=== PATIENT | male | born 1955 | race Caucasian/White ===

== ENCOUNTER → 2018-04-09 | Outpatient (CLI) | payer OTHER | END | disposition home or self-care (01) | LOC: LABPAT 12:21 | PROVIDERS: ATTEND Orthopaedic Surgery | DX: Z01.812 Encounter for preprocedural laboratory examination (principal) | CPT/HCPCS: 87070 ==

== ENCOUNTER 2018-04-26 05:56 | Day surgery (SDC) | payer OTHER ==
[2018-04-22 10:59] VITALS: BMI 38.7
--- NOTE | 2018-04-25 16:29 | HP ---
HISTORY AND PHYSICAL Surgery is scheduled for 04/26/2018. Gabriela Herrera is a 63-year-old patient seen with symptomatic right knee osteoarthritis. We discussed treatment options. The patient elected to proceed with right total knee arthroplasty. Consent was obtained. Preoperative clearance was provided Dr. Otilio Lujan. PAST MEDICAL HISTORY: Noncontributory. PAST SURGICAL HISTORY: Noncontributory. DAILY MEDICATIONS: [place]. ALLERGIES: None reported. SOCIAL HISTORY: Patient denies tobacco use. PHYSICAL EXAMINATION: Evaluation of the right knee: Range of motion is -7/110 degrees. Tenderness medial joint line. Positive medial Chance's. Ligaments stable. Crepitus along the medial and patellofemoral compartments to range of motion. Pain with patellofemoral compression. Hip rotation without pain. Distal neurovascular exam is intact. Radiographs of the right knee revealed severe medial and moderate patellofemoral compartment osteoarthritis. IMPRESSION: Right knee osteoarthritis. PLAN: Right total knee arthroplasty. MMODL / IJN: [id number] /
[~2018-04-26 05:56] MED LIST: ACETAMINOPHEN TAB 500 MG TAB PO ONE; MELOXICAM 7.5 MG TAB PO ONE; TRANEXAMIC ACID 1,000 MG in SODIUM CHLORIDE 0.9% 50 ML IVPB ONE; ceFAZolin IN SWFI 2 GM/20 ML SYRINGE IVP ONE
[2018-04-26] MEDS ORDERED: SCOPOLAMINE 1.5MG/72HR PATCH TRANSDERM ONE (06:07)
[2018-04-26] MEDS ORDERED: LACTATED RINGERS 1,000 ML IV SCH ×2 (06:07→09:45)
[2018-04-26] MEDS ORDERED: DEXAMETHASONE SOD PHOSPHATE 10 MG/ML 1 ML VIAL IV ONE (06:07)
[2018-04-26] MEDS ORDERED: ONDANSETRON 4 MG/2 ML VIAL IVP ONE (06:07)
[2018-04-26] MEDS ORDERED: MIDAZOLAM (PF) 2 MG/2 ML VIAL IV PRN (06:07)
[2018-04-26] MEDS ORDERED: LIDOCAINE 1% 20 ML VIAL (10MG/ML) FOR IV START INTRADERMA ONE (06:35)
[2018-04-26] MEDS ORDERED: fentaNYL (PF) 50 MCG/ML 2 ML AMP IVP ONE (07:00)
[2018-04-26] MEDS ORDERED: KETAMINE 10 MG/ML 20 ML VIAL ONE (07:29)
[2018-04-26] MEDS ORDERED: SODIUM CHLORIDE 0.9% 100 ML BAG ONE (07:29)
[2018-04-26] MEDS ORDERED: PHENYLEPHRINE-0.9% NACL SYG 1 MG/10 ML SYRINGE ONE (07:29)
[2018-04-26] MEDS ORDERED: TRANEXAMIC ACID 1,000 MG/10 ML VIAL ONE (07:29)
[2018-04-26] MEDS ORDERED: DEXAMETHASONE SOD PHOS (MDV) 100 MG/10 ML VIAL ONE (07:29)
[2018-04-26] MEDS ORDERED: LIDOCAINE 1% INJ 10MG/ML (20 ML MDV) ONE (07:29)
[2018-04-26] MEDS ORDERED: MIDAZOLAM 2 MG/2 ML VIAL ONE (07:29)
[2018-04-26] MEDS ORDERED: fentaNYL (PF) 50 MCG/ML 2 ML AMP ONE (07:29)
[2018-04-26] MEDS ORDERED: PROPOFOL 10 MG/ML 20 ML VIAL IV ONE (07:29)
[2018-04-26] MEDS ORDERED: ROPIVACAINE 246.25 MG, EPINEPHrine 0.5 MG, KETOROLAC 30 MG, cloNIDine HCL/PF 80 MCG, WA... MISCELLANE ONE ×5 (07:44)
[2018-04-26] MEDS ORDERED: ceFAZolin 3,000 MG in SODIUM CHLORIDE 0.9% IRRIGATIO 3,000 ML IRRIGATION ONE (08:01)
--- NOTE | 2018-04-26 08:28 | P.ONQ ---
Anesthesiology Proc Note - PNB - Peripheral Nerve Block Performed Right Adductor Canal Infusion Time Out Performed: Yes Procedure Start Time: 06:50 Procedure Stop Time: 06:58 Indication: Acute Post-Operative Pain, Analgesia, Requested by physician Sedation Type: Sedate with meaningful contact maintained Preparation: Sterile Dressing Position: Supine Catheter: Indwelling Needle Types: On-Q Needle Size: 100mm (4") Needle Gauge: 20 Technique: Ultrasound Injectate: 0.5% Ropivacaine (see comment for volume) Blood Aspirated: No Pain Paresthesia on Injection Noted: No Resistance on Injection: Normal Events: Uneventful and Well Tolerated (25ml total solution)
[2018-04-26] MEDS ORDERED: LACTATED RINGERS 1,000 ML IV ONE ×2 (08:41→13:09)
--- NOTE | 2018-04-26 09:35 | P.OP ---
Date of Procedure: 04/26/18 Preoperative Diagnosis: Right knee osteoarthritis Postoperative Diagnosis: Right knee osteoarthritis Procedure(s) Performed: Right total knee arthroplasty Implants: 1. Microport evolution size 6 right cemented femur 2. Microport evolution size 6+ right cemented tibial baseplate 3. Microport evolution size 6 right 10 mm MP polyethylene tibial insert 4. Microport advance 38 mm all polyethylene cemented patella Anesthesia: GETA, regional (Adductor canal catheter), local Surgeon: Karthik Booker Certified Professional Ergonomist #1: Enoch Levi Estimated Blood Loss (ml): 50 Pathology: other (Bone) Condition: stable Disposition: PACU Indications for Procedure: 63-year-old patient seen with symptomatic right knee osteoarthritis. After treatment options were discussed, he elected to proceed with total knee arthroplasty. Operative Findings: See description of procedure Description of Procedure: Patient was taken to the operative suite after having an adductor canal catheter placed by the department of anesthesia. Patient underwent a general anesthetic by the department of anesthesia. Patient was given preoperative IV intake antibiotics and TXA. A well-padded tourniquet was placed about the right lower extremity. The lower extremity was then prepped and draped in the normal sterile orthopedic fashion. The extremity was elevated, a tourniquet was insufflated to 300. A standard anterior incision was made sharply through skin. Dissection was taken down through the subcutaneous soft tissues down to the extensor mechanism. A medial arthrotomy was performed, patella was everted and knee was flexed. There was advanced osteoarthritis noted. I introduced my distal intramedullary femoral drill. I then introduced the distal femoral cutting jig. Jeff ULRICH secured the cutting jig with 2 pins. I held retractors in position while Jeff ULRICH performed the distal femoral resection through the guide area we now removed her distal femoral cutting guide. We now placed our 4-in-1 femoral cutting block and positioned and it was secured with 2 pins by Jeff ULRICH while I held the block in position. The distal femoral finishing was now completed. A proximal tibial cutting guide was positioned. I held the guide in the appropriate position with both hands well Jeff ULRICH inserted stabilizing pins into the guide. Proximal tibial cut was made. We now placed a trial femoral component into position, along with an appropriate size tibial tray and insert. We now took the knee through range of motion and had full extension good flexion and good overall soft tissue balance noted. The patella was everted and stabilized with 2 towel clips held by Jeff ULRICH while I performed a flush with patellar quad tendon utilizing a fresh sawblade. We templated the patella, appropriate drill holes were made. An appropriate trial patella was positioned, knee was taken through full range of motion with the patella tracking very nicely. The trial patella was removed. Drill holes were made through the femoral component. All trial components were removed after marking off the appropriate rotation of the tibia. Retractors were now positioned along the proximal tibia. An appropriate keel punch was made with the appropriate size tibial guide by myself on Jeff ULRICH assisted by holding retractors. At this point appropriate size implants were chosen and opened. The joint was irrigated copiously with pulse lavage mechanical irrigation. The posterior capsule was infiltrated with local analgesic. The wound was irrigated with pulse lavage mechanical irrigation. We mixed antibiotic methylmethacrylate. We placed the knee into flexion. We placed multiple retractors assisted by Jeff ULRICH to expose the proximal tibia. Once the methyl methacrylate was ready, the tibial component was cemented into place removing any excess methylmethacrylate form by both myself and Jeff ULRICH. The femoral component was cemented into place removing the removing any excess methylmethacrylate performed by both myself and Jeff ULRICH. We then inserted the appropriate size polyethylene tibial insert. We made sure that it was locked into position. We took the knee into full extension, and then back in a flexion making sure we had removed any excess methylmethacrylate. The patellar component was then cemented down and secured with clamp. Excess methylmethacrylate removed. We kept the knee in full extension, patellar clamp in position until methylmethacrylate had hardened. Once it had hardened the patellar clamp was removed. The knee was taken through full range of motion. The patella tracked nicely. There was good soft tissue balancing. The tourniquet was now released. Additional hemostasis was achieved via electrocautery. A second gram of TXA was given. The wound again was irrigated with pulse lavage mechanical irrigation. The superficial soft tissues were infiltrated local analgesic. The extensor mechanism was repaired with Vicryl. We checked the repair with range of motion and it was stable. The subcutaneous soft tissues were repaired with Vicryl in layers. The skin was approximated with pernio/Dermabond. Sterile dressings were applied followed by loose web roll and Anibal bandage. The patient was transferred to a bed, and taken to recovery in stable and satisfactory condition. Jeff ULRICH assisted with this complex procedure.
[2018-04-26] MEDS ORDERED: HYDROmorphone 2 MG/ML 1 ML SYRINGE IVP PRN (09:36)
[2018-04-26] MEDS ORDERED: NALOXONE 0.4 MG/ML 1 ML VIAL IV PRN (09:36)
[2018-04-26] MEDS ORDERED: HYDROcodone/APAP 5-325MG 1 EACH TAB PO PRN ×2 (09:36)
[2018-04-26] MEDS ORDERED: HYDROmorphone 0.5 MG/0.5 ML SYRINGE IVP PRN ×2 (09:36)
[2018-04-26] MEDS ORDERED: ONDANSETRON 4 MG/2 ML VIAL IVP PRN (09:36)
[2018-04-26 09:47] VITALS: TEMP 96.8
[2018-04-26] MEDS: HYDROmorphone 0.5 MG/0.5 ML SYRINGE IVP PRN ×4 (09:47→10:13)
[2018-04-26] MEDS: MEPERIDINE 50 MG/ML SYRINGE IVP ONE ×2 (10:22→11:00)
[2018-04-26] MEDS ORDERED: ROPIVACAINE 1,100 MG, SODIUM CHLORIDE 0.9% 500 ML 330 ML MISCELLANE PRN ×2 (10:23)
[2018-04-26 11:29] VITALS: RESP 16
[2018-04-26] MEDS ORDERED: HYDROcodone/APAP 7.5-325MG 1 EACH TAB PO ONE (14:19)
[2018-04-26 14:31] VITALS: BP 123/80; PULSE 68
--- NOTE | 2018-04-27 07:08 | P.PN ---
Progress Note - Text Progress Note Date: 04/27/18 The patient is status post[ 1] adductor canal catheter placement. The catheter was placed for postoperative pain control, status post total [left knee] arthroplasty. Ropivacaine 0.2% is infusing at[5 ] mLs per hour. The patient has no complaints of[ left] lower extremity numbness or weakness. Patient's VAS score is[ 5 ]-10. Assessment: Patient's adductor canal catheter is in place and working appropriately. Plan: continue infusion and adjust it as needed.
== END 2018-04-26 15:47 | disposition home health service (06) ==
LOC: OR 05:56
PROVIDERS: ATTEND Orthopaedic Surgery
DX: M17.11 Unilateral primary osteoarthritis, right knee (principal); M10.9 Gout, unspecified; Z79.891 Long term (current) use of opiate analgesic
CPT/HCPCS: 97161; 88300; 27447; C1776; C1713; C1772; J0171; J1100; J2175; J0690 ×3; J2405; J3010; J1885; J2795; J0735; J1170; J2250

== ENCOUNTER 2020-08-22 10:27 | Observation (INO) | payer MEDICARE ==
--- NOTE | 2020-08-22 12:01 | XR ---
EXAMINATION TYPE: XR chest 2V DATE OF EXAM: 08/22/2020 COMPARISON: Chest x-ray 02/19/2014 HISTORY: Chest pain TECHNIQUE: Frontal and lateral views of the chest are obtained. FINDINGS: There is been interval development of a wedge-shaped density in the subpleural location in the left chest. No evident pneumothorax or pleural effusion. Heart and mediastinal silhouette is sta ble. Left sixth, displaced seventh and possibly eighth, ninth and 10th ribs show fractures on the in terval finding. IMPRESSION: Left-sided rib fractures, there may be associated chest wall hematoma, lung contusion, c orrelate for appropriate history
[2020-08-22] MEDS ORDERED: ASPIRIN 81 MG PO STA (12:05)
[2020-08-22 12:21] LABS: Basophils # (A) 0.1 k/uL (0-0.2); Basophils % (A) 1 %; Eosinophils # (A) 0.3 k/uL (0-0.7); Eosinophils % (A) 3 %; HCT 46.8 % (39.0-53.0); HGB 15.9 gm/dL (13.0-17.5); Lymphocytes # (A) 1.7 k/uL (1.0-4.8); Lymphocytes % (A) 23 %; MCH 30.5 pg (25.0-35.0); MCV 89.8 fL (80.0-100.0); Mean Platelet Volume 8.1; Monocytes # (A) 0.4 k/uL (0-1.0); Monocytes % (A) 6 %; Neutrophils # (A) 4.8 k/uL (1.3-7.7); Neutrophils % (A) 65 %; Platelet Count 259 k/uL (150-450); RBC 5.21 m/uL (4.30-5.90); RDW 13.6 % (11.5-15.5); WBC 7.3 k/uL (3.8-10.6)
[2020-08-22 12:29] LABS: Albumin 4.9 g/dL (3.5-5.0); Calcium 10.2 mg/dL (8.4-10.2); Potassium 5.1 mmol/L (3.5-5.1); Total Bilirubin 0.6 mg/dL (0.2-1.3); Total Protein 7.5 g/dL (6.3-8.2)
--- NOTE | 2020-08-22 12:35 | ED ---
Chest Pain HPI - General Chief Complaint: Chest Pain Stated Complaint: chest pain/SOB Time Seen by Provider: 08/22/20 11:55 Source: patient, family, RN notes reviewed Mode of arrival: wheelchair Limitations: no limitations - History of Present Illness Initial Comments: 65-year-old male presents emergency Department with chief complaint of chest discomfort. Patient states he's been having some on-and-off symptoms states is persistent today. Patient states that feels like someone is punching him in the chest. He is on the left side. Patient does feel short of breath occasionally patient denies any prior cardiac disease is not taking her medications. He does go see his physician a regular basis. Patient denies any history of lung disease. - Related Data Home Medications Medication Instructions Recorded Confirmed Aspirin [Adult Low Dose Aspirin EC] 81 mg PO DAILY 08/22/20 08/22/20 Ferrous Sulfate [Feosol] 325 mg PO DAILY 08/22/20 08/22/20 Allergies Allergy/AdvReac Type Severity Reaction Status Date / Time No Known Allergies Allergy Verified 08/22/20 12:51 Review of Systems ROS Statement: Those systems with pertinent positive or pertinent negative responses have been documented in the HPI. ROS Other: All systems not noted in ROS Statement are negative. EKG Findings - EKG Comments: EKG Findings:: EKG performed at 10:46 sinus rhythm rate of 84 SD 154 QRS 88 QT/QTC 388/458 - EKG Results: EKG: interpreted by CONRADO Past Medical History Past Medical History: Hyperlipidemia Additional Past Medical History / Comment(s): Gout History of Any Multi-Drug Resistant Organisms: None Reported Past Surgical History: No Surgical Hx Reported Past Psychological History: No Psychological Hx Reported Smoking Status: Never smoker Past Alcohol Use History: None Reported Past Drug Use History: None Reported General Exam Limitations: no limitations General appearance: alert, in no apparent distress Head exam: Present: atraumatic, normocephalic, normal inspection Eye exam: Present: normal appearance, PERRL, EOMI. Absent: scleral icterus, conjunctival injection, periorbital swelling ENT exam: Present: normal exam, normal oropharynx, mucous membranes moist Neck exam: Present: normal inspection, full ROM. Absent: tenderness, meningismus, lymphadenopathy Respiratory exam: Present: normal lung sounds bilaterally. Absent: respiratory distress, wheezes, rales, rhonchi, stridor Cardiovascular Exam: Present: regular rate, normal rhythm, normal heart sounds. Absent: systolic murmur, diastolic murmur, rubs, gallop, clicks GI/Abdominal exam: Present: soft, normal bowel sounds. Absent: distended, tenderness, guarding, rebound, rigid Extremities exam: Present: normal capillary refill. Absent: pedal edema, calf tenderness Course Vital Signs 08/22/20 08/22/20 08/22/20 10:36 12:23 12:29 Temperature 97.7 F Pulse Rate 82 74 Respiratory 18 20 Rate Blood Pressure 122/78 122/76 159/87 O2 Sat by Pulse 96 97 Oximetry - Reevaluation(s) Reevaluation #1: 08/22/20 12:36 Chest x-ray shows evidence of rib fractures. Patient states he's had no recent falls. Patient states he fell 5 years ago from a height onto some concrete. Patient was kept over the night in the hospital for rib fractures but states he is only told he had 2 rib fractures. Chest Pain MDM - MDM 65-year-old presented for chest pain. Initial workup does not reveal any acute findings x-ray shows evidence of old rib fractures he has no new injury. Patient's d-dimer is negative patient be admitted for cardiology evaluation. Disposition Clinical Impression: Chest pain Disposition: ADMITTED IP TO THIS HOSP Condition: Fair Referrals: Otilio Lujan DO [Primary Care Provider] - 1-2 days
[2020-08-22 12:39] LABS: INR 0.9 (<1.2)
[2020-08-22 12:40] LABS: D-Dimer 0.45 mg/L FEU (<0.60); Partial Thromboplastin Time 22.4 sec (22.0-30.0)
[2020-08-22] MEDS ORDERED: HEPARIN SODIUM 1,000 UN/ML (10ML VL) IV ONE (14:24)
[2020-08-22] MEDS ORDERED: NITROGLYCERIN SL TABS 0.4 MG TAB SUBLINGUAL PRN (14:24)
[2020-08-22] MEDS ORDERED: HEPARIN SOD,PORK IN 0.45% NACL 25,000 UNIT in 0.45% NACL 1 250ML.BAG IV SCH (14:30)
[2020-08-22 21:54] LABS: Partial Thromboplastin Time 25.9 sec (22.0-30.0); Prothrombin Time 10.5 sec (9.0-12.0)
[2020-08-22] MEDS: HEPARIN SODIUM 1,000 UN/ML (10ML VL) IV PRN (22:08)
[2020-08-23 03:34] VITALS: TEMP 97.6
[2020-08-23] MEDS: HEPARIN SODIUM 1,000 UN/ML (10ML VL) IV PRN (06:10)
[2020-08-23 07:49] VITALS: BP 143/83; PULSE 61; RESP 17
[2020-08-23] MEDS ORDERED: ASPIRIN 325 MG TAB PO SCH (09:00)
[2020-08-23] MEDS ORDERED: REGADENOSON 0.4 MG/5 ML SYRINGE IV PRN (09:17)
[2020-08-23] MEDS ORDERED: CAFFEINE CITRATE 60 MG/3 ML VIAL IV PRN (09:17)
[2020-08-23] MEDS ORDERED: AMINOPHYLLINE 500 MG/20 ML VIAL IV PRN (09:17)
--- NOTE | 2020-08-23 10:40 | P.CRDCN ---
History of Present Illness History of present illness: HISTORY OF PRESENTING ILLNESS This is a pleasant 65-year-old male past medical history significant for dyslipidemia, left sided rib fractures 6 years ago. 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 We have been asked to see in consultation for chest pain. Patient states that he's been having intermittent left-sided chest pain. Yesterday his chest pain was more persistent. He associated shortness of breath, nausea and diaphoresis. His chest pain increases) he decided to present to the emergency department. He denies symptoms of palpitations, weakness, lightheadedness, symptoms of orthopnea or PND. He denies a history of hypertension diabetes, cardiac disease, stroke. He does not take any cardiac medication. He is a nonsmoker. Occasional alcohol drinker. No prior cardiac workup in the past. Current home cardiac medications include aspirin 81 mg daily. EKG reveals sinus rhythm, heart rate 84, no significant STT wave abnormalities. No prior EKG to compare. Laboratory data reviewed, troponin negative 3, d-dimer negative, COVID-19 negative, sodium 141, potassium 5.1, serum creatinine 1.16, magnesium 2.0. Telemetry reviewed, patient in sinus bradycardia and sinus rhythm, HR 50-60s, HR low 48. Chest x-ray revealed left sided rib fractures, wedge-shaped density in the subpleural location of the left chest. On admission, BP 122/78 HR 82, afebrile, 96% on room air REVIEW OF SYSTEMS At the time of my exam: CONSTITUTIONAL: Denies fever or chills. CARDIOVASCULAR: +chest pain,+ shortness of breath, +diaphoresis Denies orthopnea, PND or palpitations. RESPIRATORY: Denies cough. GASTROINTESTINAL: +nausea Denies abdominal pain, diarrhea, constipation, vomiting. MUSCULOSKELETAL: Denies myalgias. NEUROLOGIC: Denies numbness, tingling, headacbe or weakness. ENDOCRINE: Denies fatigue, weight change, polydipsia or polyurina. GENITOURINARY: Denies burning, hematuria or urgency with micturation. HEMATOLOGIC: Denies history of anemia or bleeding. PHYSICAL EXAMINATION Blood pressure 143/83 heart rate 61 afebrile and maintaining oxygen saturation 94-97% on room air CONSTITUTIONAL: No apparent distress. HEENT: Head is normocephalic. Pupils are equal, round. Sclerae anicteric. Mucous membranes of the mouth are moist. No JVD. No carotid bruit. CHEST EXAMINATION: Lungs are clear to auscultation. No chest wall tenderness is noted on palpation or with deep breathing. HEART EXAMINATION: Regular rate and rhythm. S1, S2 heard. No murmurs, gallops or rub. ABDOMEN: Soft, nontender. Positive bowel sounds. EXTREMITIES: 2+ peripheral pulses, no lower extremity edema and no calf tenderness. SKIN: intact NEUROLOGIC EXAMINATION: Patient is awake, alert and oriented x3. ASSESSMENT Chest pain, atypical. Acute coronary syndrome has been ruled out. Cardiac enzymes negative. EKG no evidence of ischemia Dyslipidemia PLAN An acute coronary event has been ruled out with no EKG evidence of ischemia and negative cardiac enzymes. Obtain 2D echocardiogram and doppler study to assess cardiac structure and function. Perform Lexiscan stress test to assess for stress induced cardiac ischemia. If abnormal will consider coronary angiography. If stress test negative and echocardiogram with no acute findings, patient can be discharged from cardiology perspective. Thank you kindly for this consultation. Nurse Practitioner note has been reviewed, I agree with a documented findings and plan of care. Patient was seen and examined. Past Medical History Past Medical History: Hyperlipidemia, Pneumonia Additional Past Medical History / Comment(s): Gout, patient stated he fell about 5 years ago onto concrete and broke some ribs on the left side. History of Any Multi-Drug Resistant Organisms: None Reported Past Surgical History: No Surgical Hx Reported Additional Past Surgical History / Comment(s): right knee replacement Past Psychological History: No Psychological Hx Reported Smoking Status: Never smoker Past Alcohol Use History: Occasional Past Drug Use History: None Reported - Past Family History Mother Family Medical History: No Reported History Father Family Medical History: No Reported History Medications and Allergies Home Medications Medication Instructions Recorded Confirmed Type Aspirin [Adult Low Dose Aspirin EC] 81 mg PO DAILY 08/22/20 08/22/20 History Ferrous Sulfate [Feosol] 325 mg PO DAILY 08/22/20 08/22/20 History Allergies Allergy/AdvReac Type Severity Reaction Status Date / Time No Known Allergies Allergy Verified 08/22/20 12:51 Physical Exam Vitals: Vital Signs Temp Pulse Pulse Resp BP BP BP 08/23/20 07:00 97.6 F 61 17 143/83 08/23/20 02:27 97.6 F 62 18 122/68 08/22/20 19:54 97.8 F 59 L 18 152/84 08/22/20 15:00 72 16 145/84 08/22/20 12:29 159/87 08/22/20 12:23 74 20 122/76 08/22/20 10:36 97.7 F 82 18 122/78 Pulse Ox 08/23/20 07:00 94 L 08/23/20 02:27 97 08/22/20 19:54 96 08/22/20 15:00 97 08/22/20 12:29 08/22/20 12:23 97 08/22/20 10:36 96 Intake and Output 08/22/20 08/23/20 08/23/20 22:59 06:59 14:59 Intake Total 66.46 104.786 Balance 66.46 104.786 Intake: Intake, IV Titration 66.46 104.786 Amount Heparin Sod,Pork in 0.45% 66.46 104.786 NaCl 25,000 unit In 0.45 % NaCl 1 250ml.bag @ 8.16 UNITS/KG/HR 9.994 mls/hr IV .Q24H [facility] Rx#: [id number] Other: Voiding Method Toilet # Voids 1 2 Weight 122.47 kg Results 08/22/20 12:11 08/22/20 12:11 Cardiac Enzymes 08/22/20 08/22/20 08/22/20 Range/Units 12:11 12:11 15:11 AST 44 (17-59) U/L Troponin I <0.012 <0.012 (0.000-0.034) ng/mL 08/22/20 Range/Units 17:57 AST (17-59) U/L Troponin I <0.012 (0.000-0.034) ng/mL Coagulation 08/22/20 08/22/20 08/23/20 Range/Units 12:11 21:15 04:44 PT 10.0 10.5 (9.0-12.0) sec APTT 22.4 25.9 27.4 (22.0-30.0) sec CBC 08/22/20 Range/Units 12:11 WBC 7.3 (3.8-10.6) k/uL RBC 5.21 (4.30-5.90) m/uL Hgb 15.9 (13.0-17.5) gm/dL Hct 46.8 (39.0-53.0) % Plt Count 259 (150-450) k/uL Comprehensive Metabolic Panel 08/22/20 Range/Units 12:11 Sodium 141 (137-145) mmol/L Potassium 5.1 (3.5-5.1) mmol/L Chloride 108 H (98-107) mmol/L Carbon Dioxide 22 (22-30) mmol/L BUN 23 H (9-20) mg/dL Creatinine 1.16 (0.66-1.25) mg/dL Glucose 96 (74-99) mg/dL Calcium 10.2 (8.4-10.2) mg/dL AST 44 (17-59) U/L ALT 53 H (4-49) U/L Alkaline Phosphatase 115 (38-126) U/L Total Protein 7.5 (6.3-8.2) g/dL Albumin 4.9 (3.5-5.0) g/dL Current Medications Generic Name Dose Route Start Last Admin Trade Name Freq PRN Reason Stop Dose Admin Aminophylline 100 mg 08/23/20 09:17 Aminophylline 500 Mg/20 Ml Vial IV 08/23/20 13:17 ONCE PRN Patient Response Aspirin 81 mg 08/24/20 09:00 Aspirin 81 Mg PO DAILY [facility] Caffeine Citrate 60 mg 08/23/20 09:17 Caffeine Citrate 60 Mg/3 Ml Vial IV 08/23/20 13:17 ONCE PRN Patient Response Heparin Sodium (Porcine) 0 unit 08/22/20 22:00 08/23/20 06:10 Heparin Sodium 1,000 Un/Ml (10ml Vl) IV 4,000 unit PER PROTOCOL PRN Administration Low PTT Protocol Nitroglycerin 0.4 mg 08/22/20 14:24 Nitroglycerin Sl Tabs 0.4 Mg Tab SUBLINGUAL Q5M PRN Chest Pain Regadenoson 0.4 mg 08/23/20 09:17 Regadenoson 0.4 Mg/5 Ml Syringe IV 08/23/20 13:17 ONCE PRN Per Protocol Intake and Output 08/22/20 08/23/20 08/23/20 22:59 06:59 14:59 Intake Total 66.46 104.786 Balance 66.46 104.786 Intake: Intake, IV Titration 66.46 104.786 Amount Heparin Sod,Pork in 0.45% 66.46 104.786 NaCl 25,000 unit In 0.45 % NaCl 1 250ml.bag @ 8.16 UNITS/KG/HR 9.994 mls/hr IV .Q24H [facility] Rx#: [id number] Other: Voiding Method Toilet # Voids 1 2 Weight 122.47 kg 08/22/20 12:11 08/22/20 12:11
[2020-08-23 11:57] LABS: Chol/HDL Ratio 7.14; LDL Cholesterol,Calculated 142.6 mg/dL (0.0-131.0); VLDL Calculation 29.4 mg/dL (5.00-40.00)
--- NOTE | 2020-08-23 12:33 | P.STRESS ---
- Stress Test Note Stress Test Results/Findings: Exam Performed: NM stress lexiscan cardiolite Exam Date: 08/23/20 Reason for Exam: Chest Pain Height: 5 ft 10 in Weight: 122.47 kg Protocol: Lexiscan Stage: na Duration of Exercise: na Resting Heart Rate: 57 Resting Blood Pressure: 144/83 Maximum Achieved Heart Rate: 79 Maximum Achieved Blood Pressure: 149/76 85% PMHR: 132 100% PMHR: 155 METS: na Technologist Comment: Stress Test Results/Findings: His is a 65-year-old gentleman was admitted to the hospital with chest pain. Stress data: Baseline EKG showed sinus rhythm with normal UT interval and QRS duration. Blood pressure at rest is 140/83, pulse rate of 57. A standard dose of Lexiscan was infused. EKGs taken during and after infusion did not reveal any changes. Ischemia. Final impression: #1. Negative Lexiscan stress test #2. Report on the nuclear portion of the chest to be provided by the radiologist.
--- NOTE | 2020-08-23 13:10 | NM ---
EXAMINATION TYPE: NM stress lexiscan cardiolite DATE OF EXAM: 08/23/2020 COMPARISON: NONE HISTORY: Chest pain TECHNIQUE: After the intravenous administration of 10.2 mCi Tc 99m Sestamibi - Cardiolite resting SP ECT images acquired 45 minutes post injection. The patient received 0.4mg Lexiscan, 24.7 mCi Tc 99m Sestamibi - Stress images obtained [address] injection FINDINGS: Review of stress and rest SPECT images demonstrates no distinct perfusion abnormality. Gated analysi s shows normal wall motion with an estimated left ventricular ejection fraction of 63 %. IMPRESSION: No scintigraphic evidence for reversible ischemia.
--- NOTE | 2020-08-23 14:21 | P.HPIM ---
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 EKG revealing sinus rhythm, troponins negative 3, d-dimer negative . Cholesterol 147, cholesterol 200, LDL 142.6 . Hematology, coagulation unremarkable . Sodium 141, potassium 5.1 BUN 23, creatinine 1.16, magnesium 2, ALT 53. Chest x-ray reporting left-sided rib fractures, no evident pneumothorax or pleural effusion, may be associated with chest wall lung contusion,wedge-shaped density in the subpleural location of the left chest, in a patient who reports a fall 5 years ago onto concrete reporting broken ribs . Denies recent trauma /falls . Vital signs stable maintaining O2 sats in the mid to high 90s on room air. Afebrile. Heparin drip initiated, evaluated by cardiology and scheduled for Lexiscan stress test. Review of Systems Constitutional: Denied any fatigue denied any fever. Cardio vascular: Nonradiating left chest pain as mentioned above Gastrointestinal positive nausea ,no vomiting Pulmonary: Positive shortness of breath during the event, currently not Neurologic : Dizziness during the event ,currently denied any new focal deficits. Denies lightheadedness or dizziness. ROS Statement: Those systems with pertinent positive or pertinent negative responses have been documented in the HPI. ROS Other: All systems not noted in ROS Statement are negative. Past Medical History Past Medical History: Hyperlipidemia, Pneumonia Additional Past Medical History / Comment(s): Gout, patient stated he fell about 5 years ago onto concrete and broke some ribs on the left side. History of Any Multi-Drug Resistant Organisms: None Reported Past Surgical History: No Surgical Hx Reported Additional Past Surgical History / Comment(s): right knee replacement Past Psychological History: No Psychological Hx Reported Smoking Status: Never smoker Past Alcohol Use History: Occasional Past Drug Use History: None Reported - Past Family History Mother Family Medical History: No Reported History Father Family Medical History: No Reported History Medications and Allergies Home Medications Medication Instructions Recorded Confirmed Type Aspirin [Adult Low Dose Aspirin EC] 81 mg PO DAILY 08/22/20 08/22/20 History Ferrous Sulfate [Iron (65 MG 325 mg PO DAILY 08/22/20 08/22/20 History Elemental)] Allergies Allergy/AdvReac Type Severity Reaction Status Date / Time No Known Allergies Allergy Verified 08/22/20 12:51 Physical Exam Vitals: Vital Signs Temp Pulse Pulse Resp BP BP BP 08/23/20 07:00 97.6 F 61 17 143/83 08/23/20 02:27 97.6 F 62 18 122/68 08/22/20 19:54 97.8 F 59 L 18 152/84 08/22/20 15:00 72 16 145/84 Pulse Ox 08/23/20 07:00 94 L 08/23/20 02:27 97 08/22/20 19:54 96 08/22/20 15:00 97 Intake and Output 08/22/20 08/23/20 08/23/20 22:59 06:59 14:59 Intake Total 66.46 104.786 Balance 66.46 104.786 Intake: Intake, IV Titration 66.46 104.786 Amount Heparin Sod,Pork in 0.45% 66.46 104.786 NaCl 25,000 unit In 0.45 % NaCl 1 250ml.bag @ 8.16 UNITS/KG/HR 9.994 mls/hr IV .Q24H COUNT INCLUDES THE [facility] Rx#: [id number] Other: Voiding Method Toilet # Voids 1 2 Weight 122.47 kg 122.47 kg PHYSICAL EXAM: VITAL SIGNS: [As above] GENERAL: Sitting up in bed, no acute distress HEENT: Conjunctivae normal. eyes normal. NECK: No JVD. No thyroid enlargement. No LNs CARDIOVASCULAR: S1, S2 regular.. No murmur RESPIRATION: Breath sounds diminished in the bases. No rhonchi or crackles. No bronchial breathing. ABDOMEN: Soft, nontender . No guarding. no masses palpable. No ascites, No hepatosplenomegaly.Bowel sounds heard. LEGS: No edema. no swelling PSYCHIATRY: Alert and oriented X3, mood and affect normal. NERVOUS SYSTEM: Cranial N 2-12 grossly normal. Moves all 4 limbs. No focal deficits. Strength and sensation grossly intact.. Skin: Warm and dry, no rash Lymphatic system. No LN neck axilla. Results CBC & Chem 7: 08/22/20 12:11 08/22/20 12:11 Labs: Abnormal Lab Results - Last 24 Hours (Table) 08/22/20 08/23/20 Range/Units 12:11 04:44 Chloride 108 H (98-107) mmol/L BUN 23 H (9-20) mg/dL ALT 53 H (4-49) U/L LDL Cholesterol, Calc 142.6 H (0.0-131.0) mg/dL HDL Cholesterol 28.0 L (40.0-60.0) mg/dL Thrombosis Risk Factor Assmnt - Choose All That Apply Any of the Below Risk Factors Present?: Yes Each Factor Represents 1 point: Obesity (BMI >25) Other Risk Factors: Yes Each Risk Factor Represents 2 Points: Age 61-74 years Other congenital or acquired thrombophilia - If yes, enter type in comment: No Thrombosis Risk Factor Assessment Total Risk Factor Score: 3 Thrombosis Risk Factor Assessment Level: Moderate Risk Assessment and Plan Assessment: Chest pain, with negative troponins, acute coronary syndrome ruled out as per ca rdiology. Echo, Lexiscan Stress test pending Hyperlipidemia Left rib fractures with wedge shaped density in the subpleural location, history of fall on concrete with broken ribs 5 years ago Plan: Continue on current medication regime ,monitoring and symptomatic treatment. Evaluated by cardiology. Patient is scheduled for echo, Lexiscan stress test. Patient will be discharged home today in a stable condition with Prognosis pending Lexiscan stress results, final DC recommendations and c learance from cardiology. The impression and plan of care has been dictated as directed. : I performed a history and examination of this patient, discussed the same with the dictator. I agree with the dictator's note ,documented as a scribe. Any additional findings or plans will be noted.
[2020-08-24] MEDS ORDERED: ASPIRIN 81 MG PO SCH (09:00)
== END 2020-08-23 15:20 ==
LOC: EC 10:27 → 6NMEDSUR 15:40
PROVIDERS: ADMIT Family Medicine; ATTEND Family Medicine
DX: R07.89 Other chest pain (principal); S22.42XA Multiple fractures of ribs, left side, initial encounter for closed fracture; E78.5 Hyperlipidemia, unspecified; M10.9 Gout, unspecified; R06.02 Shortness of breath; R42 Dizziness and giddiness; R61 Generalized hyperhidrosis; R11.0 Nausea; R00.1 Bradycardia, unspecified; E66.9 Obesity, unspecified; Z68.38 Body mass index [BMI] 38.0-38.9, adult; Z20.822 Contact with and (suspected) exposure to COVID-19; X58.XXXA Exposure to other specified factors, initial encounter; Z79.82 Long term (current) use of aspirin; Z79.899 Other long term (current) drug therapy; Z87.81 Personal history of (healed) traumatic fracture; Z87.01 Personal history of pneumonia (recurrent); Z91.81 History of falling; Z96.651 Presence of right artificial knee joint
CPT/HCPCS: 96366 ×3; 93005 ×2; 96365; 99285; 36415; 93017; 85379; 80061; 80053; 83735; 84484; 85025; 85610; 85730 ×2; 87635; 71046; 78452; G0378 ×2; C8929; A9500; J1644 ×3; J2785; Q9950; 93306

== ENCOUNTER → 2020-10-24 | Outpatient (CLI) | payer MEDICARE ==
[2020-10-25 16:27] LABS: T4, Free (Free Thyroxine) 1.1 ng/dL (0.80-1.80)
== END | disposition home or self-care (01) ==
LOC: LABWHC1 14:18
PROVIDERS: ATTEND Internal Medicine Interventional Cardiology
DX: R42 Dizziness and giddiness (principal)
CPT/HCPCS: 36415; 84439; 84443

== ENCOUNTER 2023-08-27 11:47 | Emergency (ER) | payer MEDICARE ==
--- NOTE | 2023-08-27 12:09 | ED ---
Back Pain HPI - General Chief Complaint: Back Pain/Injury Stated Complaint: Back pain Time Seen by Provider: 08/27/23 12:07 Source: patient, RN notes reviewed Limitations: no limitations - History of Present Illness Initial Comments: 68-year-old male presented to ER with a chief complaint of back pain. 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 He states that night and into Thursday he was having a sore back pain. He states the past 48 hours he has been having back spasms. He was seen at a chiropractor prior to arrival in the ER and obtained x-rays. Patient was unable to tolerate chiropractic exam table and was told to come to the ER for evaluation. Patient denies any saddle paresthesias, radiation of pain, bowel or bladder incontinence, fevers. Patient has not taken anything for pain. No other complaints. - Related Data Home Medications Medication Instructions Recorded Confirmed Aspirin [Adult Low Dose Aspirin EC] 81 mg PO DAILY 08/22/20 08/22/20 Ferrous Sulfate [Iron (65 MG 325 mg PO DAILY 08/22/20 08/22/20 Elemental)] Previous Rx's Medication Instructions Recorded Lidocaine 5% Patch [Lidoderm 5% 1 patch TOPICAL DAILY #30 patch 08/27/23 Patch] predniSONE 50 mg PO DAILY #5 tab 08/27/23 Allergies Allergy/AdvReac Type Severity Reaction Status Date / Time No Known Allergies Allergy Verified 08/27/23 11:55 Review of Systems ROS Statement: Those systems with pertinent positive or pertinent negative responses have been documented in the HPI. ROS Other: All systems not noted in ROS Statement are negative. Past Medical History Past Medical History: Hyperlipidemia, Pneumonia Additional Past Medical History / Comment(s): Gout, patient stated he fell about 5 years ago onto concrete and broke some ribs on the left side. History of Any Multi-Drug Resistant Organisms: None Reported Past Surgical History: No Surgical Hx Reported Additional Past Surgical History / Comment(s): right knee replacement Past Psychological History: No Psychological Hx Reported Smoking Status: Never smoker Past Alcohol Use History: Occasional Past Drug Use History: None Reported - Past Family History Mother Family Medical History: No Reported History Father Family Medical History: No Reported History General Exam Limitations: no limitations General appearance: alert, in no apparent distress Respiratory exam: Present: normal lung sounds bilaterally. Absent: respiratory distress, wheezes, rales, rhonchi, stridor Cardiovascular Exam: Present: regular rate, normal rhythm, normal heart sounds. Absent: systolic murmur, diastolic murmur, rubs, gallop, clicks Extremities exam: Present: normal inspection, full ROM, normal capillary refill. Absent: tenderness, pedal edema, joint swelling, calf tenderness Back exam: Present: normal inspection, muscle spasm (Left lumbar) Neurological exam: Present: alert, oriented X3, CN II-XII intact Skin exam: Present: warm, dry, intact, normal color. Absent: rash Course Vital Signs 08/27/23 08/27/23 08/27/23 11:53 14:28 15:11 Temperature 97.6 F 98.1 F Pulse Rate 65 88 86 Respiratory 18 18 18 Rate Blood Pressure 185/86 168/83 169/84 O2 Sat by Pulse 97 97 97 Oximetry Medical Decision Making - Medical Decision Making Was pt. sent in by a medical professional or institution (, PA, [employer], urgent care, hospital, or group home...) When possible be specific @ -Patient sent by chiropractor for evaluation of back pain. Did you speak to anyone other than the patient for history (EMS, parent, family, police, friend...)? What history was obtained from this source @ - aiding in HPI and past medical history Did you review nursing and triage notes (agree or disagree)? Why? @ -I reviewed and agree with nursing and triage notes Were old charts reviewed (outside hosp., previous admission, EMS record, old EKG, old radiological studies, urgent care reports/EKG's, group home records)? Report findings @ -No old charts were reviewed Differential Diagnosis (chest pain, altered mental status, abdominal pain women, abdominal pain men, vaginal bleeding, weakness, fever, dyspnea, syncope, headache, dizziness, GI bleed, back pain, seizure, CVA, palpatations, mental health, musculoskeletal)? @ -Differential Back Pain: Strain, zoster, cauda equina syndrome, epidural abscess, vertebral osteomyelitis, discitis, fracture, subluxation, disc herniation, DJD, spinal stenosis, dissection, AAA, pancreatitis, peptic ulcer disease, pyelonephritis, kidney stone, this is not meant to be an all-inclusive list. EKG interpreted by me (3pts min.). @ -None X-rays interpreted by me (1pt min.). @ -Lumbar spine x-rays interpreted by me negative for acute fractures or dislocations. CT interpreted by me (1pt min.). @ -None done U/S interpreted by me (1pt. min.). @ -None done What testing was considered but not performed or refused? (CT, X-rays, U/S, labs)? Why? @ -None What meds were considered but not given or refused? Why? @ -None Did you discuss the management of the patient with other professionals (professionals i.e. , PA, [employer], lab, RT, psych nurse, child welfare social worker, billboard erector, teacher, traffic maintenance officer, case hardener)? Give summary @ -No Was smoking cessation discussed for >3mins.? @ -No Was critical care preformed (if so, how long)? @ -No Were there social determinants of health that impacted care today? How? (Homelessness, low income, unemployed, alcoholism, drug addiction, transportation, low edu. Level, literacy, decrease access to med. care, long-term, rehab)? @ -No Was there de-escalation of care discussed even if they declined (Discuss DNR or withdrawal of care, Hospice)? DNR status @ -No What co-morbidities impacted this encounter? (DM, HTN, Smoking, COPD, CAD, Cancer, CVA, ARF, Chemo, Hep., AIDS, mental health diagnosis, sleep apnea, morbid obesity)? @ -Obese Was patient admitted / discharged? Hospital course, mention meds given and route, prescriptions, significant lab abnormalities, going to OR and other per tinent info. @ -Discharge. 68-year-old male presenting to the ER with a chief complaint of back pain after physical labor. History and physical exam completed. Vitals stable. Patient in no signs of acute distress and nontoxic-appearing. No red flag back pain symptoms indicative of cauda equina syndrome. No focal tenderness to palpation. During examination patient would have intense flares of pain exacerbated by movement. Equal bilateral lower extremity strength. Bilateral lower extremities neurovascular intact. No rashes, erythema or contusions present on skin. X-rays obtained negative for acute process. Patient received IM Norflex, Dilaudid and by mouth ibuprofen. Upon reevaluation, patient resting comfortably on stretcher no signs of acute distress. Patient reports symptoms have improved. Results discussed with patient, all questions answered. Prednisone and lidocaine patches prescribed. Advise close follow-up with orthopedics if symptoms persist. Return parameters discussed. Patient discharged stable condition. Patient verbally expressed understanding and agreement with care plan. Case discussed with ED attending, Dr. Campos. Undiagnosed new problem with uncertain prognosis? @ -No Drug Therapy requiring intensive monitoring for toxicity (Heparin, Nitro, Insulin, Cardizem)? @ -No Were any procedures done? @ -No Diagnosis/symptom? @ -Muscle spasm Acute, or Chronic, or Acute on Chronic? @ -Acute Uncomplicated (without systemic symptoms) or Complicated (systemic symptoms)? @ -Uncomplicated Side effects of treatment? @ -No Exacerbation, Progression, or Severe Exacerbation? @ -No Poses a threat to life or bodily function? How? (Chest pain, [place], [place], pneumonia, PE, COPD, DKA, ARF, appy, cholecystitis, CVA, Diverticulitis, Homicidal, Suicidal, threat to staff... and all critical care pts) @ -No - Radiology Data Radiology results: report reviewed, image reviewed Disposition Clinical Impression: Muscle spasm Disposition: HOME SELF-CARE Condition: Stable Instructions (If sedation given, give patient instructions): Acute Low Back Pain (ED), Muscle Spasm (ED) Additional Instructions: Complete full course of prednisone. Follow-up with PCP. Return to the ER for any new or worsening concerns. If symptoms persist follow-up with orthopedics. Prescriptions: Lidocaine 5% Patch [Lidoderm 5% Patch] 1 patch TOPICAL DAILY #30 patch predniSONE 50 mg PO DAILY #5 tab Is patient prescribed a controlled substance at d/c from ED?: No Referrals: Otilio Lujan DO [Primary Care Provider] - 1-2 days Javy Khan DO [Doctor of Osteopathic Medicine] - 1-2 days Time of Disposition: 14:57
[2023-08-27] MEDS: ORPHENADRINE 30 MG/ML 2 ML VIAL IM STA (12:10)
[2023-08-27 12:12] VITALS: RESP 18
[2023-08-27] MEDS: IBUPROFEN 600 MG TAB PO STA (12:30)
--- NOTE | 2023-08-27 13:42 | XR ---
Lumbar spine HISTORY: Back pain COMPARISON: None. TECHNIQUE: 3 views lumbar spine were obtained FINDINGS: The lumbar vertebral segments are normal in height and alignment is no fracture or subluxation. There is mild spondylosis and mild disc space narrowing at the L1-2, L2-3 and L3-4 levels indicating mild degenerative disease. There is moderate disc space narrowing and spondylosis in the lower thorac ic spine indicating moderate lower thoracic degenerative disc disease. Sacrum and SI joints normal. L4-5 and L5-S1 level facets are sclerotic consistent with facet arthropathy. There are remote healed left ninth and 10th rib fractures. IMPRESSION: 1. No evidence of acute trauma. 2. Mild to moderate Multilevel degenerative disc disease throughout the lumbar spine and lower thorac ic spine.
[2023-08-27] MEDS: HYDROmorphone 0.5 MG/0.5 ML SYRINGE IM STA (15:14)
[2023-08-27 15:58] VITALS: BP 169/84; PULSE 86; TEMP 98.1
== END 2023-08-27 15:11 | disposition home or self-care (01) ==
LOC: EC 11:47
DX: M62.830 Muscle spasm of back (principal); E66.9 Obesity, unspecified; Z68.38 Body mass index [BMI] 38.0-38.9, adult
CPT/HCPCS: 72100; 99283; 96372 ×2; J2360; J1170

== ENCOUNTER 2023-10-30 10:35 | Inpatient (IN) | payer MEDICARE ==
--- NOTE | 2023-10-30 11:00 | ED ---
General Adult HPI - General Chief complaint: Weakness Stated complaint: Weakness Time Seen by Provider: 10/30/23 10:40 Source: patient, RN notes reviewed Mode of arrival: EMS Limitations: no limitations - History of Present Illness Initial comments: Patient is a 68-year-old male presenting to the emergency department with concerns for shaking and chills. Symptoms have been present for a few days now. Patient has episodes of shaking followed by fatigue. Patient states this last for hours. Patient is assuming that he is having a fever. No cough or upper respiratory symptoms. No back or abdominal pain. No rash. No urinary symptoms. Patient has been fatigued and generally weak. - Related Data Home Medications Medication Instructions Recorded Confirmed Colchicine [Colcrys] 0.6 mg PO DAILY PRN 10/30/23 10/30/23 Allergies Allergy/AdvReac Type Severity Reaction Status Date / Time No Known Allergies Allergy Verified 10/30/23 10:44 Review of Systems ROS Statement: Those systems with pertinent positive or pertinent negative responses have been documented in the HPI. ROS Other: All systems not noted in ROS Statement are negative. Constitutional: Reports: as per HPI Eyes: Denies: eye pain ENT: Denies: ear pain Respiratory: Denies: cough, dyspnea Cardiovascular: Denies: chest pain Endocrine: Reports: fatigue Gastrointestinal: Denies: abdominal pain Genitourinary: Denies: dysuria Musculoskeletal: Denies: back pain Skin: Denies: rash Neurological: Denies: headache Past Medical History Past Medical History: Hyperlipidemia, Pneumonia Additional Past Medical History / Comment(s): Gout, patient stated he fell about 5 years ago onto concrete and broke some ribs on the left side. History of Any Multi-Drug Resistant Organisms: None Reported Past Surgical History: No Surgical Hx Reported Additional Past Surgical History / Comment(s): right knee replacement Past Psychological History: No Psychological Hx Reported Smoking Status: Never smoker Past Alcohol Use History: Occasional Past Drug Use History: None Reported - Past Family History Mother Family Medical History: No Reported History Father Family Medical History: No Reported History General Exam Limitations: no limitations General appearance: alert, in no apparent distress Head exam: Present: normocephalic Eye exam: Present: normal appearance ENT exam: Present: normal oropharynx Neck exam: Present: normal inspection. Absent: tenderness, meningismus Respiratory exam: Present: normal lung sounds bilaterally Cardiovascular Exam: Present: regular rate, normal rhythm GI/Abdominal exam: Present: soft. Absent: distended, tenderness Extremities exam: Present: normal inspection Neurological exam: Present: alert Psychiatric exam: Present: normal affect, normal mood Skin exam: Present: normal color Course Vital Signs 10/30/23 10/30/23 10/30/23 10:41 12:04 12:49 Temperature 98.4 F Pulse Rate 77 68 66 Respiratory 18 16 16 Rate Blood Pressure 109/59 110/59 117/61 O2 Sat by Pulse 97 96 98 Oximetry EKG Findings - EKG Results: EKG: interpreted by ERMD, sinus rhythm, normal axis, normal QRS, normal ST/T Medical Decision Making - Medical Decision Making Was pt. sent in by a medical professional or institution (, PA, [employer], urgent care, hospital, or snf...) When possible be specific @ -No Did you speak to anyone other than the patient for history (EMS, parent, family, police, friend...)? What history was obtained from this source @ -Family arrives and provides additional history of patient taking Motrin this morning for his symptoms Did you review nursing and triage notes (agree or disagree)? Why? @ -I reviewed and agree with nursing and triage notes Were old charts reviewed (outside hosp., previous admission, EMS record, old EKG, old radiological studies, urgent care reports/EKG's, snf records)? Report findings @ -No old charts were reviewed Differential Diagnosis (chest pain, altered mental status, abdominal pain women, abdominal pain men, vaginal bleeding, weakness, fever, dyspnea, syncope, headache, dizziness, GI bleed, back pain, seizure, CVA, palpatations, mental health, musculoskeletal)? @ -Differential Weakness: Hypoglycemia, shock, sepsis, hyponatremia, anemia, infection, LA, ETOH, adverse medicine reaction, overdose, stroke, this is not meant to be an all-inclusive list. EKG interpreted by me (3pts min.). @ -As above X-rays interpreted by me (1pt min.). @ -Chest x-ray shows no acute process CT interpreted by me (1pt min.). @ -None done U/S interpreted by me (1pt. min.). @ -None done What testing was considered but not performed or refused? (CT, X-rays, U/S, labs)? Why? @ -None What meds were considered but not given or refused? Why? @ -None Did you discuss the management of the patient with other professionals (professionals i.e. , PA, [employer], lab, RT, psych nurse, high school social studies teacher, segmental paver installer, teacher, transit authority police officer, casework manager)? Give summary @ -Case was discussed with Dr. Dale who will admit covering Dr. Lujan Was smoking cessation discussed for >3mins.? @ -No Was critical care preformed (if so, how long)? @ -No Were there social determinants of health that impacted care today? How? (Homelessness, low income, unemployed, alcoholism, drug addiction, transportation, low edu. Level, literacy, decrease access to med. care, nursing home, rehab)? @ -No Was there de-escalation of care discussed even if they declined (Discuss DNR or withdrawal of care, Hospice)? DNR status @ -No What co-morbidities impacted this encounter? (DM, HTN, Smoking, COPD, CAD, Cancer, CVA, ARF, Chemo, Hep., AIDS, mental health diagnosis, sleep apnea, morbid obesity)? @ -None Was patient admitted / discharged? Hospital course, mention meds given and route, prescriptions, significant lab abnormalities, going to OR and other pertinent info. @ -Patient presents with weakness and fever. Patient has urinary tract infection with elevated white blood cell count. Patient will be admitted with IV antibiotics. Admission orders written. Undiagnosed new problem with uncertain prognosis? @ -No Drug Therapy requiring intensive monitoring for toxicity (Heparin, Nitro, Insulin, Cardizem)? @ -No Were any procedures done? @ -No Diagnosis/symptom? @ -Urinary tract infection, weakness Acute, or Chronic, or Acute on Chronic? @ -Acute, acute Uncomplicated (without systemic symptoms) or Complicated (systemic symptoms)? @ -Default Side effects of treatment? @ -No Exacerbation, Progression, or Severe Exacerbation? @ -No Poses a threat to life or bodily function? How? (Chest pain, USA, LA, pneumonia, PE, COPD, DKA, ARF, appy, cholecystitis, CVA, Diverticulitis, Homicidal, Suicidal, threat to staff... and all critical care pts) @ -No - Lab Data Result diagrams: 10/30/23 11:14 10/30/23 11:14 Lab Results 10/30/23 10/30/23 10/30/23 Range/Units 11:14 11:14 11:14 WBC 14.6 H (3.8-10.6) k/uL RBC 4.75 (4.30-5.90) m/uL Hgb 14.3 (13.0-17.5) gm/dL Hct 42.3 (39.0-53.0) % MCV 89.2 (80.0-100.0) fL MCH 30.1 (25.0-35.0) pg MCHC 33.7 (31.0-37.0) g/dL RDW 13.2 (11.5-15.5) % Plt Count 201 (150-450) k/uL MPV 8.3 Neutrophils % 90 % Lymphocytes % 4 % Monocytes % 4 % Eosinophils % 1 % Basophils % 0 % Neutrophils # 13.2 H (1.3-7.7) k/uL Lymphocytes # 0.6 L (1.0-4.8) k/uL Monocytes # 0.6 (0-1.0) k/uL Eosinophils # 0.1 (0-0.7) k/uL Basophils # 0.0 (0-0.2) k/uL Sodium 128 L (137-145) mmol/L Potassium 4.1 (3.5-5.1) mmol/L Chloride 100 (98-107) mmol/L Carbon Dioxide 18 L (22-30) mmol/L Anion Gap 10 mmol/L BUN 24 H (9-20) mg/dL Creatinine 1.15 (0.66-1.25) mg/dL Est GFR (CKD-EPI)AfAm 76 (>60 ml/min/1.73 sqM) Est GFR (CKD-EPI)NonAf 66 (>60 ml/min/1.73 sqM) Glucose 104 H (74-99) mg/dL Plasma Lactic Acid John 1.4 (0.7-2.0) mmol/L Calcium 9.1 (8.4-10.2) mg/dL Total Bilirubin 1.1 (0.2-1.3) mg/dL AST 101 H (17-59) U/L ALT 48 (4-49) U/L Alkaline Phosphatase 77 (38-126) U/L Total Protein 6.1 L (6.3-8.2) g/dL Albumin 3.9 (3.5-5.0) g/dL Urine Color Urine Appearance (Clear) Urine pH (5.0-8.0) Ur Specific Rogers (1.001-1.035) Urine Protein (Negative) Urine Glucose (UA) (Negative) Urine Ketones (Negative) Urine Blood (Negative) Urine Nitrite (Negative) Urine Bilirubin (Negative) Urine Urobilinogen (<2.0) mg/dL Ur Leukocyte Esterase (Negative) Urine RBC (0-5) /hpf Urine WBC (0-5) /hpf Urine WBC Clumps (None) /hpf Ur Squamous Epith Cells (0-4) /hpf Urine Bacteria (None) /hpf Hyaline Casts (0-2) /lpf Urine Mucus (None) /hpf Influenza Type A (PCR) (Not Detectd) Influenza Type B (PCR) (Not Detectd) RSV (PCR) (Not Detectd) SARS-CoV-2 (PCR) (Not Detectd) 10/30/23 10/30/23 Range/Units 11:14 11:14 WBC (3.8-10.6) k/uL RBC (4.30-5.90) m/uL Hgb (13.0-17.5) gm/dL Hct (39.0-53.0) % MCV (80.0-100.0) fL MCH (25.0-35.0) pg MCHC (31.0-37.0) g/dL RDW (11.5-15.5) % Plt Count (150-450) k/uL MPV Neutrophils % % Lymphocytes % % Monocytes % % Eosinophils % % Basophils % % Neutrophils # (1.3-7.7) k/uL Lymphocytes # (1.0-4.8) k/uL Monocytes # (0-1.0) k/uL Eosinophils # (0-0.7) k/uL Basophils # (0-0.2) k/uL Sodium (137-145) mmol/L Potassium (3.5-5.1) mmol/L Chloride (98-107) mmol/L Carbon Dioxide (22-30) mmol/L Anion Gap mmol/L BUN (9-20) mg/dL Creatinine (0.66-1.25) mg/dL Est GFR (CKD-EPI)AfAm (>60 ml/min/1.73 sqM) Est GFR (CKD-EPI)NonAf (>60 ml/min/1.73 sqM) Glucose (74-99) mg/dL Plasma Lactic Acid John (0.7-2.0) mmol/L Calcium (8.4-10.2) mg/dL Total Bilirubin (0.2-1.3) mg/dL AST (17-59) U/L ALT (4-49) U/L Alkaline Phosphatase (38-126) U/L Total Protein (6.3-8.2) g/dL Albumin (3.5-5.0) g/dL Urine Color Yellow Urine Appearance Cloudy (Clear) Urine pH 5.5 (5.0-8.0) Ur Specific Rogers 1.022 (1.001-1.035) Urine Protein 1+ H (Negative) Urine Glucose (UA) Negative (Negative) Urine Ketones 1+ H (Negative) Urine Blood Small H (Negative) Urine Nitrite Positive (Negative) Urine Bilirubin Negative (Negative) Urine Urobilinogen <2.0 (<2.0) mg/dL Ur Leukocyte Esterase Large H (Negative) Urine RBC 9 H (0-5) /hpf Urine WBC >182 H (0-5) /hpf Urine WBC Clumps Few H (None) /hpf Ur Squamous Epith Cells 1 (0-4) /hpf Urine Bacteria Many H (None) /hpf Hyaline Casts 11 H (0-2) /lpf Urine Mucus Many H (None) /hpf Influenza Type A (PCR) Not Detected (Not Detectd) Influenza Type B (PCR) Not Detected (Not Detectd) RSV (PCR) Not Detected (Not Detectd) SARS-CoV-2 (PCR) Not Detected (Not Detectd) Disposition Clinical Impression: Urinary tract infection, Dehydration Disposition: ADMITTED IP TO THIS HOSP Is patient prescribed a controlled substance at d/c from ED?: No Referrals: Otilio Lujan DO [Primary Care Provider] - 1-2 days Time of Disposition: 12:59
[2023-10-30 11:31] LABS: Basophils % (A) 0 %; Eosinophils # (A) 0.1 k/uL (0-0.7); Eosinophils % (A) 1 %; HCT 42.3 % (39.0-53.0); HGB 14.3 gm/dL (13.0-17.5); Lymphocytes # (A) 0.6 k/uL (1.0-4.8); Lymphocytes % (A) 4 %; MCH 30.1 pg (25.0-35.0); MCHC 33.7 g/dL (31.0-37.0); MCV 89.2 fL (80.0-100.0); Mean Platelet Volume 8.3; Monocytes # (A) 0.6 k/uL (0-1.0); Monocytes % (A) 4 %; Neutrophils # (A) 13.2 k/uL (1.3-7.7); Neutrophils % (A) 90 %; Platelet Count 201 k/uL (150-450); RBC 4.75 m/uL (4.30-5.90); RDW 13.2 % (11.5-15.5); WBC 14.6 k/uL (3.8-10.6)
[2023-10-30 11:50] LABS: ALT 48 U/L (4-49); AST 101 U/L (17-59); African American GFR (CKD) 76 (>60 ml/min/1.73 sqM); Albumin 3.9 g/dL (3.5-5.0); Alkaline Phosphatase 77 U/L (38-126); Anion Gap 10 mmol/L; Blood Urea Nitrogen 24 mg/dL (9-20); Calcium 9.1 mg/dL (8.4-10.2); Carbon Dioxide 18 mmol/L (22-30); Chloride 100 mmol/L (98-107); Glucose 104 mg/dL (74-99); Non-African American GFR(CKD) 66 (>60 ml/min/1.73 sqM); Potassium 4.1 mmol/L (3.5-5.1); Sodium 128 mmol/L (137-145); Total Bilirubin 1.1 mg/dL (0.2-1.3); Total Protein 6.1 g/dL (6.3-8.2)
--- NOTE | 2023-10-30 11:52 | XR ---
EXAMINATION TYPE: XR chest 2V DATE OF EXAM: 10/30/2023 11:31 AM COMPARISON: Chest radiographs 08/22/2020 TECHNIQUE: XR chest 2V Frontal and lateral views of the chest. CLINICAL INDICATION:Male, 68 years old with history of Fever; FINDINGS: Lungs/Pleura: There is no evidence of pleural effusion, focal consolidation, or pneumothorax. Pulmonary vascularity: Unremarkable. Heart/mediastinum: Cardiomediastinal silhouette is enlarged and stable. Musculoskeletal: No acute osseous pathology. Multilevel degenerative changes of the visualized spine. IMPRESSION: No acute cardiopulmonary disease/process.
[2023-10-30] MEDS: SODIUM CHLORIDE 0.9% 500 ML 500 ML IV SCH (12:04)
[2023-10-30 12:08] LABS: Appearance,Urine Cloudy (Clear); Bacteria,Urine Many /hpf; Bilirubin,Urine Negative (Negative); Blood,Urine Small (Negative); Color,Urine Yellow; Glucose,Urine (UA) Negative (Negative); Hyaline Casts,Urine 11 /lpf (0-2); Ketones,Urine 1+ (Negative); Leukocyte Esterase,Urine Large (Negative); Mucus,Urine Many /hpf; Nitrite,Urine Positive (Negative); PH, Urine 5.5 (5.0-8.0); Protein,Urine 1+ (Negative); RBC,Urine 9 /hpf (0-5); Specific Gravity,Urine 1.022 (1.001-1.035); Squamous Epithelial Cell,Urine 1 /hpf (0-4); Urobilinogen,Urine <2.0 mg/dL (<2.0); WBC,Urine >182 /hpf (0-5)
[2023-10-30] MEDS ORDERED: NALOXONE 0.4 MG/ML 1 ML VIAL IV PRN (12:59)
[2023-10-30] MEDS ORDERED: ACETAMINOPHEN TAB 325 MG TAB PO PRN (12:59)
--- NOTE | 2023-10-30 13:11 | P.HPIM ---
History of Present Illness This is a pleasant 68 years old male with past medical history of hyperlipidemia and gout Presents because of severe generalized weakness of 1 week duration. Patient states that he has been having fever and shivering for 4 days and has been feeling very weak, he has low appetite not eating well. He vomited once on Thursday but now stopped No abdominal pain or distention but complains from diarrhea about 3 times per day with no blood or mucus He denies chest pain or dyspnea. No coughing. No headache dizziness specific limb weakness or numbness He denies blurred vision or slurred speech No urinary symptoms like dysuria or urgency. No suprapubic pain or flank pain Patient denies smoking alcohol or illicit drugs Patient is hemodynamically stable on admission He has mild leukocytosis of 14.6, rest of CBC is unremarkable Sodium 128, liver enzymes not elevated Influenza A and type B, RSV, SARS (coronavirus) are undetected Urine analysis is suspicious for infection Chest x-ray is negative for acute process EKG showing sinus rhythm at [address]-T changes Review of Systems Review of systems -CONSTITUTIONAL: No fever, has malaise, positive fatigue. HEENT: No recent visual problems or hearing problems. Denied any sore throat. CARDIOVASCULAR: No orthopnea, PND, no palpitations, no syncope. PULMONARY: No shortness of breath, no cough, no hemoptysis. GASTROINTESTINAL: No diarrhea, no nausea, no vomiting, no abdominal pain. Normoactive bowel sounds. NEUROLOGICAL: No headaches, no weakness, no numbness. HEMATOLOGICAL: Denies any bleeding or petechiae. GENITOURINARY: Denies any burning micturition, frequency, or urgency. MUSCULOSKELETAL/RHEUMATOLOGICAL: Denies any joint pain, swelling, or any muscle pain. ENDOCRINE: Denies any polyuria or polydipsia. Past Medical History Past Medical History: Hyperlipidemia, Pneumonia Additional Past Medical History / Comment(s): Gout, patient stated he fell about 5 years ago onto concrete and broke some ribs on the left side. History of Any Multi-Drug Resistant Organisms: None Reported Past Surgical History: No Surgical Hx Reported Additional Past Surgical History / Comment(s): right knee replacement Past Psychological History: No Psychological Hx Reported Smoking Status: Never smoker Past Alcohol Use History: Occasional Past Drug Use History: None Reported - Past Family History Mother Family Medical History: No Reported History Father Family Medical History: No Reported History Medications and Allergies Home Medications Medication Instructions Recorded Confirmed Type Colchicine [Colcrys] 0.6 mg PO DAILY PRN 10/30/23 10/30/23 History Allergies Allergy/AdvReac Type Severity Reaction Status Date / Time No Known Allergies Allergy Verified 10/30/23 10:44 Physical Exam Vitals: Vital Signs Temp Pulse Resp BP Pulse Ox 10/30/23 12:49 66 16 117/61 98 10/30/23 12:04 68 16 110/59 96 10/30/23 10:41 98.4 F 77 18 109/59 97 Intake and Output 10/29/23 10/30/23 10/30/23 22:59 06:59 14:59 Other: Weight 122.47 kg -GENERAL: The patient is alert and oriented x3, not in any acute distress. Well developed, well nourished. Obese and generally weak HEENT: Pupils are round and equally reacting to light. EOMI. No scleral icterus. No conjunctival pallor. Normocephalic, atraumatic. No pharyngeal erythema. No thyromegaly. CARDIOVASCULAR: S1 and S2 present. No murmurs, rubs, or gallops. PULMONARY: Chest is clear to auscultation, no wheezing , no crackles. ABDOMEN: Soft, nontender, nondistended, normoactive bowel sounds. No palpable organomegaly. MUSCULOSKELETAL: No joint swelling or deformity. EXTREMITIES: No cyanosis, clubbing, or pedal edema. NEUROLOGICAL: Gross neurological examination did not reveal any focal deficits. SKIN: No rashes. no petechiae. Results CBC & Chem 7: 10/30/23 11:14 10/30/23 11:14 Labs: Abnormal Lab Results - Last 24 Hours (Table) 10/30/23 10/30/23 10/30/23 Range/Units 11:14 11:14 11:14 WBC 14.6 H (3.8-10.6) k/uL Neutrophils # 13.2 H (1.3-7.7) k/uL Lymphocytes # 0.6 L (1.0-4.8) k/uL Sodium 128 L (137-145) mmol/L Carbon Dioxide 18 L (22-30) mmol/L BUN 24 H (9-20) mg/dL Glucose 104 H (74-99) mg/dL AST 101 H (17-59) U/L Total Protein 6.1 L (6.3-8.2) g/dL Urine Protein 1+ H (Negative) Urine Ketones 1+ H (Negative) Urine Blood Small H (Negative) Ur Leukocyte Esterase Large H (Negative) Urine RBC 9 H (0-5) /hpf Urine WBC >182 H (0-5) /hpf Urine WBC Clumps Few H (None) /hpf Urine Bacteria Many H (None) /hpf Hyaline Casts 11 H (0-2) /lpf Urine Mucus Many H (None) /hpf Assessment and Plan Assessment: Acute urinary tract infection is highly suspicious Generalized weakness and lethargy. Severe most likely secondary to his UTI Dehydration Reactive gastroenteritis Hypovolemic hyponatremia Obesity with BMI of 38.7 Hyperlipidemia Plan: Start ceftriaxone Follow-up urine culture blood culture Check a bladder scan Continue with IV hydration with normal saline Labs and medication were reviewed.. Continue same treatment. Continue with symptomatic treatment. Resume home medication. Monitor labs and vitals. DVT and GI prophylaxis. Further recommendations as per clinical course of the patient DVT prophylaxis: Subcutaneous heparin GI Prophylaxis: Pepcid PT/OT: Pending Prognosis is guarded
[2023-10-30] MEDS: SODIUM CHLORIDE 0.9% 1,000 ML IV SCH (14:04)
[2023-10-30] MEDS ORDERED: COLCHICINE 0.6 MG EACH PO PRN (15:13)
[2023-10-31 10:10] LABS: Basophils # (A) 0.04 X 10*3/uL (0.00-0.10); Basophils % (A) 0.5 %; Eosinophils # (A) 0.13 X 10*3/uL (0.04-0.35); Eosinophils % (A) 1.7 %; HCT 39.8 % (39.6-50.0); HGB 13.1 g/dL (13.0-17.0); Lymphocytes # (A) 0.98 X 10*3/uL (0.90-5.00); Lymphocytes % (A) 12.9 %; MCH 29.6 pg (27.0-32.0); MCHC 32.9 g/dL (32.0-37.0); MCV 89.8 FL (80.0-97.0); Mean Platelet Volume 11.7 FL (9.5-12.2); Monocytes % (A) 7.9 %; NRBC Per 100 WBC 0 X 10*3/uL (0.00-0.01); Neutrophils # (A) 5.83 X 10*3/uL (1.80-7.70); Neutrophils % (A) 76.7 %; Platelet Count 141 X 10*3/uL (140-440); RBC 4.43 X 10*6/uL (4.40-5.60); RDW 13.3 % (11.5-14.5)
[2023-10-31 10:33] LABS: ALT 54 U/L (10-49); AST 93 U/L (14-35); Albumin 3.7 g/dL (3.8-4.9); Albumin/Globulin Ratio 1.95 Ratio (1.60-3.17); Alkaline Phosphatase 87 U/L (41-126); Blood Urea Nitrogen 19.6 mg/dL (9.0-27.0); Calcium 8.6 mg/dL (8.7-10.3); Carbon Dioxide 21.5 mmol/L (21.6-31.8); Chloride 103 mmol/L (96-109); Globulin 1.9 g/dL (1.6-3.3); Glucose 128 mg/dL (70-110); Potassium 3.9 mmol/L (3.5-5.5); Sodium 136 mmol/L (135-145); Total Bilirubin 0.3 mg/dL (0.3-1.2); Total Protein 5.6 g/dL (6.2-8.2)
--- NOTE | 2023-10-31 18:46 | P.PN ---
Subjective This is a pleasant 68 years old male with past medical history of hyperlipidemia and gout Presents because of severe generalized weakness of 1 week duration. Patient states that he has been having fever and shivering for 4 days and has been feeling very weak, he has low appetite not eating well. He vomited once on Thursday but now stopped No abdominal pain or distention but complains from diarrhea about 3 times per day with no blood or mucus He denies chest pain or dyspnea. No coughing. No headache dizziness specific limb weakness or numbness He denies blurred vision or slurred speech No urinary symptoms like dysuria or urgency. No suprapubic pain or flank pain Patient denies smoking alcohol or illicit drugs Patient is hemodynamically stable on admission He has mild leukocytosis of 14.6, rest of CBC is unremarkable Sodium 128, liver enzymes not elevated Influenza A and type B, RSV, SARS (coronavirus) are undetected Urine analysis is suspicious for infection Chest x-ray is negative for acute process EKG showing sinus rhythm at [address]-T changes 10/31/2023 Patient feels better, he feels stronger No specific urinary symptoms today, no suprapubic pain or flank pain or tenderness His leukocytosis is improving down to 7.6 today Sodium improving up to 136 Creatinine 1.15 down to 1.0 Liver enzymes mildly elevated Urine analysis is suspicious for UTI, urine culture pending Blood culture pending Pro- Calcitonin elevated We will consult ID team Patient told me he wants to leave by tomorrow, I counseled the patient NOT to leave before initial workup and treatment and assess stable within. Risk of leaving AMA including but not limited of worsening infection, organ dysfunction or loss and/or were explained for the patient and he verbalized understanding and acceptance to stay today Review of systems CONSTITUTIONAL: No fever, no malaise, no fatigue. HEENT: No recent visual problems or hearing problems. Denied any sore throat. CARDIOVASCULAR: No orthopnea, PND, no palpitations, no syncope. PULMONARY: No shortness of breath, no cough, no hemoptysis. GASTROINTESTINAL: No diarrhea, no nausea, no vomiting, no abdominal pain. Normoactive bowel sounds. NEUROLOGICAL: No headaches, no weakness, no numbness. ENDOCRINE: Denies any polyuria or polydipsia. Active Medications Generic Name Dose Route Start Last Admin Trade Name Freq PRN Reason Stop Dose Admin Acetaminophen 650 mg 10/30/23 12:59 Acetaminophen Tab 325 Mg Tab PO Q6HR PRN Mild Pain or Fever > 100.5 Colchicine 0.6 mg 10/30/23 15:13 Colchicine 0.6 Mg Each PO DAILY PRN gout flare Famotidine 20 mg 10/31/23 21:00 Famotidine 20 Mg/2 Ml Vial IV Q12HR LUBNA Heparin Sodium (Porcine) 5,000 unit 10/31/23 21:00 Heparin Sodium,Porcine 5,000 Unit/Ml 1 Ml Vial SQ Q12HR LUBNA Ceftriaxone Sodium 1 gm/ 50 mls @ 100 mls/hr 10/30/23 13:00 10/31/23 08:24 Sodium Chloride IVPB 100 mls/hr Q12HR LUBNA Administration Protocol Sodium Chloride 1,000 mls @ 75 mls/hr 10/30/23 13:00 10/31/23 12:43 Saline 0.9% IV Not Given .[id number] LUBNA Naloxone HCl 0.2 mg 10/30/23 12:59 Naloxone 0.4 Mg/Ml 1 Ml Vial IV Q2M PRN Opioid Reversal Objective - Vital Signs Vital signs: Vital Signs Temp 98.7 F 10/31/23 07:59 Pulse 66 10/31/23 07:59 Resp 17 10/31/23 07:59 BP 125/72 10/31/23 07:59 Pulse Ox 97 10/31/23 07:59 FiO2 Intake & Output 10/30/23 10/31/23 10/31/23 18:59 06:59 18:59 Weight 122.47 kg Other: # Voids 1 3 - Exam -GENERAL: The patient is alert and oriented x3, not in any acute distress. Well developed, well nourished. Obese and generally weak HEENT: Pupils are round and equally reacting to light. EOMI. No scleral icterus. No conjunctival pallor. Normocephalic, atraumatic. No pharyngeal erythema. No thyromegaly. CARDIOVASCULAR: S1 and S2 present. No murmurs, rubs, or gallops. PULMONARY: Chest is clear to auscultation, no wheezing , no crackles. ABDOMEN: Soft, nontender, nondistended, normoactive bowel sounds. No palpable organomegaly. MUSCULOSKELETAL: No joint swelling or deformity. EXTREMITIES: No cyanosis, clubbing, or pedal edema. NEUROLOGICAL: Gross neurological examination did not reveal any focal deficits. SKIN: No rashes. no petechiae. - Labs CBC & Chem 7: 10/31/23 04:10 10/31/23 04:10 Labs: Abnormal Lab Results - Last 24 Hours (Table) 10/30/23 10/30/23 10/30/23 Range/Units 11:14 11:14 11:14 WBC 14.6 H (3.8-10.6) k/uL Neutrophils # 13.2 H (1.3-7.7) k/uL Lymphocytes # 0.6 L (1.0-4.8) k/uL Sodium 128 L (137-145) mmol/L Carbon Dioxide 18 L (22-30) mmol/L BUN 24 H (9-20) mg/dL Glucose 104 H (74-99) mg/dL Calcium (8.7-10.3) mg/dL AST 101 H (17-59) U/L ALT (10-49) U/L Total Protein 6.1 L (6.3-8.2) g/dL Albumin (3.8-4.9) g/dL Procalcitonin (0.02-0.50) ng/mL Urine Protein 1+ H (Negative) Urine Ketones 1+ H (Negative) Urine Blood Small H (Negative) Ur Leukocyte Esterase Large H (Negative) Urine RBC 9 H (0-5) /hpf Urine WBC >182 H (0-5) /hpf Urine WBC Clumps Few H (None) /hpf Urine Bacteria Many H (None) /hpf Hyaline Casts 11 H (0-2) /lpf Urine Mucus Many H (None) /hpf 10/31/23 10/31/23 Range/Units 04:10 04:10 WBC (3.8-10.6) k/uL Neutrophils # (1.3-7.7) k/uL Lymphocytes # (1.0-4.8) k/uL Sodium (137-145) mmol/L Carbon Dioxide 21.5 L (22-30) mmol/L BUN (9-20) mg/dL Glucose 128 H (74-99) mg/dL Calcium 8.6 L (8.7-10.3) mg/dL AST 93 H (17-59) U/L ALT 54 H (10-49) U/L Total Protein 5.6 L (6.3-8.2) g/dL Albumin 3.7 L (3.8-4.9) g/dL Procalcitonin 8.95 H (0.02-0.50) ng/mL Urine Protein (Negative) Urine Ketones (Negative) Urine Blood (Negative) Ur Leukocyte Esterase (Negative) Urine RBC (0-5) /hpf Urine WBC (0-5) /hpf Urine WBC Clumps (None) /hpf Urine Bacteria (None) /hpf Hyaline Casts (0-2) /lpf Urine Mucus (None) /hpf Assessment and Plan Assessment: Acute urinary tract infection is highly suspicious Generalized weakness and lethargy. Severe most likely secondary to his UTI Dehydration Reactive gastroenteritis Hypovolemic hyponatremia Obesity with BMI of 38.7 Hyperlipidemia Plan: c/w ceftriaxone Follow-up urine culture blood culture Check a bladder scan Continue with IV hydration with normal saline ID team consult Labs and medication were reviewed.. Continue same treatment. Continue with symptomatic treatment. Resume home medication. Monitor labs and vitals. DVT and GI prophylaxis. Further recommendations as per clinical course of the patient DVT prophylaxis: Subcutaneous heparin GI Prophylaxis: Pepcid PT/OT: Pending Prognosis is guarded
[2023-10-31] MEDS: HEPARIN SODIUM,PORCINE 5,000 UNIT/ML 1 ML VIAL SQ SCH (20:48)
[2023-10-31] MEDS: FAMOTIDINE 20 MG/2 ML VIAL IV SCH (20:48)
[2023-10-31] MEDS ORDERED: FAMOTIDINE 20 MG/2 ML VIAL ONE (20:48)
--- NOTE | 2023-10-31 22:29 | P.CONS ---
History of Present Illness - Reason for Consult Consult date: 10/31/23 Sepsis, possible UTI Requesting physician: Orlando E Sheet - Chief Complaint Rigors and chills x few days - History of Present Illness Patient is a 68-year male with a past medical history significant for hyperlipidemia pneumonia patient presenting to the hospital for evaluation of shaking and chills and this patient symptom has been going on for the last few days and has been mostly at night patient denies having any headache or URI symptoms denies any chest pain shortness of breath very minimal cough no sputum production no nausea vomiting abdominal pain or any diarrhea patient also complaining of feeling fatigue and weak with the symptoms the patient was evaluated on presentation to the hospital patient was afebrile did have 1 low- grade fever of 99 F patient was not tachycardic hypotensive or hypoxic he did have white count of 14.6 with a left shift creatinine is 1.15 liver isms mildly elevated urine has been positive influenza RSV COVID testing has been negative patient did have a chest x-ray no acute cardiopulmonary disease process patient was started on Rocephin infectious disease was consulted for further management of antibiotic therapy Review of Systems Positive point and negatives has been mentioned in the HPI, complete review of systems was performed and all other systems are negative Past Medical History Past Medical History: Hyperlipidemia, Pneumonia Additional Past Medical History / Comment(s): Gout, patient stated he fell about 5 years ago onto concrete and broke some ribs on the left side. History of Any Multi-Drug Resistant Organisms: None Reported Past Surgical History: No Surgical Hx Reported Additional Past Surgical History / Comment(s): right knee replacement Past Anesthesia/Blood Transfusion Reactions: No Reported Reaction Past Psychological History: No Psychological Hx Reported Smoking Status: Never smoker Past Alcohol Use History: Occasional Past Drug Use History: None Reported - Past Family History Mother Family Medical History: No Reported History Father Family Medical History: No Reported History Medications and Allergies Home Medications Medication Instructions Recorded Confirmed Type Colchicine [Colcrys] 0.6 mg PO DAILY PRN 10/30/23 10/30/23 History Allergies Allergy/AdvReac Type Severity Reaction Status Date / Time No Known Allergies Allergy Verified 10/30/23 10:44 Physical Exam Vitals: Vital Signs Temp Pulse Pulse Resp BP BP Pulse Ox 10/31/23 07:59 98.7 F 66 17 125/72 97 10/31/23 02:04 98.4 F 65 18 106/58 94 L 10/30/23 19:55 97.9 F 66 19 110/60 94 L 10/30/23 16:41 97.9 F 74 18 122/77 98 10/30/23 16:17 98.0 F 63 16 123/48 98 10/30/23 15:46 68 16 106/60 99 10/30/23 14:27 97.9 F 65 16 101/53 95 10/30/23 12:49 66 16 117/61 98 10/30/23 12:04 68 16 110/59 96 Intake and Output 10/30/23 10/31/23 10/31/23 22:59 06:59 14:59 Other: # Voids 1 3 Weight 122.47 kg GENERAL DESCRIPTION: Middle-aged male lying in bed, no distress. No tachypnea or accessory muscle of respiration use. HEENT: Shows Pallor , no scleral icterus. Oral mucous membrane is dry. No pharyngeal erythema or thrush NECK: Trachea central, no thyromegaly. LUNGS: Unlabored breathing. Clear to auscultation anteriorly. No wheeze or crackle. HEART: S1, S2, regular rate and rhythm. No loud murmur ABDOMEN: Soft, no tenderness , guarding or rigidity, no organomegaly EXTREMITIES: No edema of feet. SKIN: No rash, no masses palpable. NEUROLOGICAL: The patient is awake, alert, oriented x3, mood and affect normal. Results CBC & Chem 7: 10/31/23 04:10 10/31/23 04:10 Labs: Abnormal Lab Results - Last 24 Hours (Table) 10/30/23 10/30/23 10/31/23 Range/Units 11:14 11:14 04:10 Sodium 128 L (137-145) mmol/L Carbon Dioxide 18 L (22-30) mmol/L BUN 24 H (9-20) mg/dL Glucose 104 H (74-99) mg/dL Calcium (8.7-10.3) mg/dL AST 101 H (17-59) U/L ALT (10-49) U/L Total Protein 6.1 L (6.3-8.2) g/dL Albumin (3.8-4.9) g/dL Procalcitonin 8.95 H (0.02-0.50) ng/mL Urine Protein 1+ H (Negative) Urine Ketones 1+ H (Negative) Urine Blood Small H (Negative) Ur Leukocyte Esterase Large H (Negative) Urine RBC 9 H (0-5) /hpf Urine WBC >182 H (0-5) /hpf Urine WBC Clumps Few H (None) /hpf Urine Bacteria Many H (None) /hpf Hyaline Casts 11 H (0-2) /lpf Urine Mucus Many H (None) /hpf 10/31/23 Range/Units 04:10 Sodium (137-145) mmol/L Carbon Dioxide 21.5 L (22-30) mmol/L BUN (9-20) mg/dL Glucose 128 H (74-99) mg/dL Calcium 8.6 L (8.7-10.3) mg/dL AST 93 H (17-59) U/L ALT 54 H (10-49) U/L Total Protein 5.6 L (6.3-8.2) g/dL Albumin 3.7 L (3.8-4.9) g/dL Procalcitonin (0.02-0.50) ng/mL Urine Protein (Negative) Urine Ketones (Negative) Urine Blood (Negative) Ur Leukocyte Esterase (Negative) Urine RBC (0-5) /hpf Urine WBC (0-5) /hpf Urine WBC Clumps (None) /hpf Urine Bacteria (None) /hpf Hyaline Casts (0-2) /lpf Urine Mucus (None) /hpf Assessment and Plan (1) Fever Current Visit: Yes Status: Acute Code(s): R50.9 - FEVER, UNSPECIFIED SNOMED Code(s): 713283520 (2) Urinary tract infection Current Visit: Yes Status: Acute Code(s): N39.0 - URINARY TRACT INFECTION, SITE NOT SPECIFIED SNOMED Code(s): 24090378 Plan: 1patient presented to hospital with rigors and chills in this patient who did have leukocytosis on admission to the hospital and also have a positive UA concerning for possible urinary source as currently had no other obvious focus of infection with evidence of any cellulitis or joint swelling patient to have elevated liver enzymes underlying cholangitis/biliary source need to be excluded 2we will repeat ultrasound of the abdomen specifically looking for the liver, gallbladder as well as the kidneys 3will increase the dose of Rocephin to 2 g daily while waiting for the workup to be completed Question concern answered We will follow on clinical condition and cultures to further adjust medication if needed Thank you for this consultation we will follow the patient along with you Dictation was produced using Note dictation software. please excuse any grammatical, word or spelling errors. Time with Patient: Greater than 30
--- NOTE | 2023-11-01 08:39 | US ---
EXAMINATION TYPE: US abdomen complete DATE OF EXAM: 11/01/2023 COMPARISON: NONE CLINICAL INDICATION: Male, 68 years old with history of Fever elevated liver enzymes and positive UA; elevated liver enzymes UTI TECHNIQUE: FINDINGS: EXAM MEASUREMENTS: Liver Length: 17.7 cm Gallbladder Wall: .2 cm CBD: .5 cm Spleen: 12.5 cm Right Kidney: 10.3 x 4.9 x 5.7 cm Left Kidney: 11.9 x 4.7 x 4.4 cm Pancreas: Obscured by bowel gas Liver: Increased attenuation Gallbladder: No stones seen Evidence for sonographic Maldonado's sign: No CBD: wnl Spleen: wnl Right Kidney: No hydronephrosis or masses seen Left Kidney: No hydronephrosis or masses seen Upper IVC: wnl Abd Aorta: wnl IMPRESSION: 1. Pancreas obscured by bowel gas. 2. Normal gallbladder. 3. Mild hepatomegaly and steatosis.
[2023-11-01 10:20] LABS: Basophils # (A) 0.04 X 10*3/uL (0.00-0.10); Basophils % (A) 0.8 %; Eosinophils # (A) 0.19 X 10*3/uL (0.04-0.35); HCT 39.3 % (39.6-50.0); HGB 13.1 g/dL (13.0-17.0); Lymphocytes # (A) 1.27 X 10*3/uL (0.90-5.00); Lymphocytes % (A) 26.8 %; MCHC 33.3 g/dL (32.0-37.0); MCV 89.9 FL (80.0-97.0); Mean Platelet Volume 12.1 FL (9.5-12.2); Monocytes # (A) 0.62 X 10*3/uL (0.20-1.00); Monocytes % (A) 13.1 %; NRBC Per 100 WBC 0 X 10*3/uL (0.00-0.01); Neutrophils % (A) 55.1 %; Platelet Count 146 X 10*3/uL (140-440); RBC 4.37 X 10*6/uL (4.40-5.60); RDW 13.5 % (11.5-14.5); WBC 4.73 X 10*3/uL (4.50-10.00)
[2023-11-01 10:39] LABS: Hepatitis A Antibody IgM Nonreactive (Nonreactive); Hepatitis B Core IgM Nonreactive (Nonreactive); Hepatitis B Surface Antigen Nonreactive (Nonreactive); Hepatitis C IgG Antibody Nonreactive (Nonreactive)
[2023-11-01 10:57] LABS: Blood Urea Nitrogen 17.5 mg/dL (9.0-27.0); Calcium 8.7 mg/dL (8.7-10.3); Carbon Dioxide 19.5 mmol/L (21.6-31.8); Chloride 105 mmol/L (96-109); Glucose 103 mg/dL (70-110); Potassium 4.2 mmol/L (3.5-5.5); Sodium 137 mmol/L (135-145)
--- NOTE | 2023-11-01 16:04 | P.PN ---
Subjective Progress Note Date: 11/01/23 Principal diagnosis: Reason for follow-up is urinary tract infection Patient is a 68-year male with a past medical history significant for hyperlipidemia pneumonia patient presenting to the hospital for evaluation of shaking and chills patient has been diagnosed with a UTI also have a mild elevated liver enzymes hepatitis panel negative ultrasound abdomen mild hepato megaly steatosis normal gallbladder and no hydronephrosis. On today's evaluation that is 11/01/2023,the patient remains to be afebrile, patient is on room air not requiring supplemental oxygen and denies any shortness of breath no chest pain or cough.Patient denies having any nausea or vomiting, no abdominal pain and no diarrhea has been reported, patient mention feeling slightly better. Patient white count is 4.70, creatinine is 1.0 urine with growing gram-negative Objective - Vital Signs Vital signs: Vital Signs Temp 98.4 F 11/01/23 07:22 Pulse 61 11/01/23 07:22 Resp 17 11/01/23 07:22 BP 150/88 11/01/23 07:22 Pulse Ox 94 L 11/01/23 07:22 FiO2 Intake & Output 10/31/23 11/01/23 11/01/23 18:59 06:59 18:59 Other: # Voids 3 1 - Exam GENERAL DESCRIPTION: An elderly male lying in bed in no distress RESPIRATORY SYSTEM: Unlabored breathing , decreased breath sounds at bases HEART: S1 S2 regular rate and rhythm , ABDOMEN: Soft , no tenderness EXTREMITIES: No edema feet - Labs CBC & Chem 7: 11/01/23 03:45 11/01/23 03:45 Labs: Abnormal Lab Results - Last 24 Hours (Table) 11/01/23 11/01/23 Range/Units 03:45 03:45 RBC 4.37 L (4.40-5.60) X 10*6/uL Hct 39.3 L (39.6-50.0) % Carbon Dioxide 19.5 L (21.6-31.8) mmol/L Anion Gap 12.50 H (4.00-12.00) mmol/L Microbiology - Last 24 Hours (Table) 10/30/23 14:26 Urine Culture - Preliminary Urine,Voided Gram Neg Bacilli 10/30/23 13:55 Blood Culture - Preliminary Blood Assessment and Plan (1) Fever Current Visit: Yes Status: Acute Code(s): R50.9 - FEVER, UNSPECIFIED SNOMED Code(s): 250527125 (2) Urinary tract infection Current Visit: Yes Status: Acute Code(s): N39.0 - URINARY TRACT INFECTION, SITE NOT SPECIFIED SNOMED Code(s): 41776230 Plan: 1patient presented to hospital with rigors and chills in this patient who did have leukocytosis on admission to the hospital and also have a positive UA concerning for possible urinary source as currently had no other obvious focus of infection with evidence of any cellulitis or joint swelling patient to have e levated liver enzymes underlying cholangitis/biliary source need to be excluded 2ultrasound of the abdomen did not show any acute abnormality to the liver gallbladder or the kidneys 3urine is growing gram-negative with ID sensitivities pending continue with Rocephin while waiting for the culture to finalize at the bedside multiple questions were answered Dictation was produced using [employer] dictation software. please excuse any grammatical, word or spelling errors. Time with Patient: Less than 30
[2023-11-02 07:42] VITALS: BP 165/89; PULSE 65; RESP 20; TEMP 97.9
--- NOTE | 2023-11-02 08:03 | P.PN ---
Subjective This is a pleasant 68 years old male with past medical history of hyperlipidemia and gout Presents because of severe generalized weakness of 1 week duration. Patient states that he has been having fever and shivering for 4 days and has been feeling very weak, he has low appetite not eating well. He vomited once on Thursday but now stopped No abdominal pain or distention but complains from diarrhea about 3 times per day with no blood or mucus He denies chest pain or dyspnea. No coughing. No headache dizziness specific limb weakness or numbness He denies blurred vision or slurred speech No urinary symptoms like dysuria or urgency. No suprapubic pain or flank pain Patient denies smoking alcohol or illicit drugs Patient is hemodynamically stable on admission He has mild leukocytosis of 14.6, rest of CBC is unremarkable Sodium 128, liver enzymes not elevated Influenza A and type B, RSV, SARS (coronavirus) are undetected Urine analysis is suspicious for infection Chest x-ray is negative for acute process EKG showing sinus rhythm at [address]-T changes 10/31/2023 Patient feels better, he feels stronger No specific urinary symptoms today, no suprapubic pain or flank pain or tenderness His leukocytosis is improving down to 7.6 today Sodium improving up to 136 Creatinine 1.15 down to 1.0 Liver enzymes mildly elevated Urine analysis is suspicious for UTI, urine culture pending Blood culture pending Pro- Calcitonin elevated We will consult ID team Patient told me he wants to leave by tomorrow, I counseled the patient NOT to leave before initial workup and treatment and assess stable within. Risk of leaving AMA including but not limited of worsening infection, organ dysfunction or loss and/or were explained for the patient and he verbalized understanding and acceptance to stay today 11/01/23 Patient with no dysuria No other urinary symptoms Abdomen looks soft . He remains on ceftriaxone Urine culture is pending final results Objective - Vital Signs Vital signs: Vital Signs Temp 98.4 F 11/01/23 07:22 Pulse 61 11/01/23 07:22 Resp 17 11/01/23 07:22 BP 150/88 11/01/23 07:22 Pulse Ox 94 L 11/01/23 07:22 FiO2 Intake & Output 10/31/23 11/01/23 11/01/23 18:59 06:59 18:59 Other: # Voids 3 1 - Exam -GENERAL: The patient is alert and oriented x3, not in any acute distress. Well developed, well nourished. Obese and generally weak HEENT: Pupils are round and equally reacting to light. EOMI. No scleral icterus. No conjunctival pallor. Normocephalic, atraumatic. No pharyngeal erythema. No thyromegaly. CARDIOVASCULAR: S1 and S2 present. No murmurs, rubs, or gallops. PULMONARY: Chest is clear to auscultation, no wheezing , no crackles. ABDOMEN: Soft, nontender, nondistended, normoactive bowel sounds. No palpable organomegaly. MUSCULOSKELETAL: No joint swelling or deformity. EXTREMITIES: No cyanosis, clubbing, or pedal edema. NEUROLOGICAL: Gross neurological examination did not reveal any focal deficits. SKIN: No rashes. no petechiae. - Labs CBC & Chem 7: 11/01/23 03:45 11/01/23 03:45 Labs: Abnormal Lab Results - Last 24 Hours (Table) 11/01/23 11/01/23 Range/Units 03:45 03:45 RBC 4.37 L (4.40-5.60) X 10*6/uL Hct 39.3 L (39.6-50.0) % Carbon Dioxide 19.5 L (21.6-31.8) mmol/L Anion Gap 12.50 H (4.00-12.00) mmol/L Microbiology - Last 24 Hours (Table) 10/30/23 14:26 Urine Culture - Preliminary Urine,Voided Gram Neg Bacilli 10/30/23 13:55 Blood Culture - Preliminary Blood Assessment and Plan Assessment: Acute urinary tract infection is highly suspicious Generalized weakness and lethargy. Severe most likely secondary to his UTI Dehydration Reactive gastroenteritis Hypovolemic hyponatremia Obesity with BMI of 38.7 Hyperlipidemia Plan: c/w ceftriaxone Follow-up urine culture blood culture Check a bladder scan Continue with IV hydration with normal saline ID team consult Labs and medication were reviewed.. Continue same treatment. Continue with symptomatic treatment. Resume home medication. Monitor labs and vitals. DVT and GI prophylaxis. Further recommendations as per clinical course of the patient DVT prophylaxis: Subcutaneous heparin GI Prophylaxis: Pepcid PT/OT: Pending Prognosis is guarded
--- NOTE | 2023-11-02 10:53 | P.DS ---
Providers Date of admission: 10/30/23 13:45 Expected date of discharge: 11/02/23 Attending physician: Otilio Lujan Consults: 10/31/23 11:05 Consult Physician Urgent Consulting Provider: Nely Weber Consult Reason/Comments: sepsis, possilbe uti Do you want consulting provider notified?: Yes Primary care physician: Otilio Lujan Hospital Course: Final Diagnoses: Acute UTI with Enterobacter aerogenes Dehydration, generalized weakness secondary to the above, resolved Reactive gastroenteritis, resolved Hypovolemic hyponatremia, resolved Hyperlipidemia Morbid obesity, BMI 39 Mild hepatomegaly and steatosis, hepatitis panel negative History of gout Hospital course: This is a 68-year-old gentleman admitted with acute UTI with Enterobacter aerogenous, mild elevated liver enzymes, hepatitis panel negative, ultrasound of abdomen reporting mild hepatomegaly steatosis, normal gallbladder and no hydronephrosis. Afebrile, normal WBC. Maintained on IV ceftriaxone as per infectious disease. BUN 12.5, creatinine 1. Denies nausea ,vomiting, diarrhea or abdominal pain. Denies chest pain, palpitations or shortness of breath. Denies lightheadedness, dizziness or focal deficits. Ambulating, tolerating exertion well. Currently sitting up in chair, awaiting discharge. Patient will be discharged home today in a stable condition with guarded prognosis on Cipro as ordered per ID. Microbiology 10/30/23 14:26 Urine,Voided Urine Culture - Final Enterobacter aerogenes 10/30/23 13:55 Blood Blood Culture - Preliminary The impression and plan of care has been dictated as directed. : I performed a history and examination of this patient, discussed the same with the dictator. I agree with the dictator's note ,documented as a scribe. Any additional findings or plans will be noted. Patient Condition at Discharge: Stable Plan - Discharge Summary Discharge Rx Participant: No New Discharge Prescriptions: New Ciprofloxacin HCl [Cipro] 500 mg PO BID 10 Days #20 tab Continue Colchicine [Colcrys] 0.6 mg PO DAILY PRN PRN Reason: gout flare Discharge Medication List Colchicine [Colcrys] 0.6 mg PO DAILY PRN 10/30/23 [History] Ciprofloxacin HCl [Cipro] 500 mg PO BID 10 Days #20 tab 11/02/23 [Rx] Follow up Appointment(s)/Referral(s): Otilio Lujan DO [Primary Care Provider] - 11/10/23 11:40 am
--- NOTE | 2023-11-02 12:53 | P.PN ---
Subjective Progress Note Date: 11/02/23 Principal diagnosis: Reason for follow-up is urinary tract infection Patient is a 68-year male with a past medical history significant for hyperlipidemia pneumonia patient presenting to the hospital for evaluation of shaking and chills patient has been diagnosed with a UTI also have a mild elevated liver enzymes hepatitis panel negative ultrasound abdomen mild hepato megaly steatosis normal gallbladder and no hydronephrosis. On today's evaluation that is 11/02/2023, the patient continues to be afebrile, the patient is on room air and breathing comfortably, the Pt denies having any chest pain or cough, the patient denies having any abdominal pain no vomiting or any diarrhea, mention overall feeling better. No new lab has been obtained today urine has been finalized with Enterobacter, blood culture negative Objective - Vital Signs Vital signs: Vital Signs Temp 97.9 F 11/02/23 06:53 Pulse 65 11/02/23 06:53 Resp 20 11/02/23 06:53 BP 165/89 11/02/23 06:53 Pulse Ox 92 L 11/02/23 06:53 FiO2 Intake & Output 11/01/23 11/02/23 11/02/23 18:59 06:59 18:59 Other: Voiding Method Toilet Toilet # Voids 3 2 - Exam GENERAL DESCRIPTION: An elderly male lying in bed in no distress RESPIRATORY SYSTEM: Unlabored breathing , decreased breath sounds at bases HEART: S1 S2 regular rate and rhythm , ABDOMEN: Soft , no tenderness EXTREMITIES: No edema feet - Labs CBC & Chem 7: 11/01/23 03:45 11/01/23 03:45 Labs: Abnormal Lab Results - Last 24 Hours (Table) 11/01/23 Range/Units 03:45 Carbon Dioxide 19.5 L (21.6-31.8) mmol/L Anion Gap 12.50 H (4.00-12.00) mmol/L Microbiology - Last 24 Hours (Table) 10/30/23 14:26 Urine Culture - Final Urine,Voided Enterobacter aerogenes 10/30/23 13:55 Blood Culture - Preliminary Blood Assessment and Plan (1) Fever Current Visit: Yes Status: Acute Code(s): R50.9 - FEVER, UNSPECIFIED SNOMED Code(s): 430049141 (2) Urinary tract infection Current Visit: Yes Status: Acute Code(s): N39.0 - URINARY TRACT INFECTION, SITE NOT SPECIFIED SNOMED Code(s): 61695906 Plan: 1patient presented to hospital with rigors and chills in this patient who did have leukocytosis on admission to the hospital and also have a positive UA concerning for possible urinary source as currently had no other obvious focus of infection with evidence of any cellulitis or joint swelling patient to have elevated liver enzymes underlying cholangitis/biliary source need to be excluded 2ultrasound of the abdomen did not show any acute abnormality to the liver gallbladder or the kidneys 3urine culture has been finalized with Enterobacter that is sensitive to ceftriaxone as well as Cipro will finish therapy with oral Cipro x 10 days prescription sent to the pharmacy question concern answered Dictation was produced using [employer] dictation software. please excuse any grammatical, word or spelling errors. Time with Patient: Less than 30
== END 2023-11-02 13:09 | disposition home or self-care (01) | DRG 690 ==
LOC: EC 10:35 → 4SSUR 13:45
PROVIDERS: ADMIT Family Medicine; ATTEND Family Medicine
DX: N39.0 Urinary tract infection, site not specified (principal); E87.1 Hypo-osmolality and hyponatremia; B96.89 Other specified bacterial agents as the cause of diseases classified elsewhere; E66.01 Morbid (severe) obesity due to excess calories; E78.5 Hyperlipidemia, unspecified; E86.0 Dehydration; E86.1 Hypovolemia; K52.9 Noninfective gastroenteritis and colitis, unspecified; Z96.651 Presence of right artificial knee joint; Z68.39 Body mass index [BMI] 39.0-39.9, adult; Z11.52 Encounter for screening for COVID-19
CPT/HCPCS: 36415; 71046; 76700; 80048; 80053; 80074; 81001; 83605; 84145; 85025; 87040; 87077; 87086; 87186; 87636; 93005; 96360; 96361; 99285